=== PATIENT | male | born 1950 | race Caucasian/White ===

== ENCOUNTER 2016-12-15 01:36 | Inpatient (IN) | payer MEDICARE, OTHER ==
[~2016-12-15] VITALS: Ht 175.3 cm; Wt 77.2 kg
[2016-12-15] VITALS (17 sets, daily range): BP systolic 85–101; BP diastolic 50–77; PULSE 93–105; RESP 18–28; TEMP 97.7–99.3; O2SAT 93–100
--- NOTE | 2016-12-15 01:48 | PD ---
HPI Chief Complaint: mechanical fall Time Seen by Provider: 01:42 Travel History International Travel<30 days: No Contact w/Intl Traveler<30days: No Traveled to known affect area: No History of Present Illness HPI The patient is a 66 year old male who presents to the [facility] emergency department with a history of reportedly getting up to go the bathroom and having a mechanical fall prior to arrival. The patient reports that he has had some generalized weakness this evening. The patient denies any injury related to the fall. He denies hitting his head or losing consciousness. He denies having any neck pain or extremity pain. Ambulance services were called to assist him with getting up. The patient's blood pressure was noted to be on the lower side when they sat him up, thus the patient was brought in for evaluation and treatment. They reported that his blood pressure was sitting up was 90/60. IV access was not obtained in this patient prior to arrival. The patient arrives awake and alert. The patient reports that he has stage IV pancreatic cancer. He reports that it was diagnosed in April 2016. He reports that he is followed by an oncologist both in [place] and [facility]. He reports that he last received chemotherapy on Tuesday. He reports that he last had paracentesis done 3 weeks ago. He reports that his next paracentesis is scheduled for this . The patient reports that he was on high blood pressure medication previously, however this was discontinued at assist blood pressure has been lower recently. He reports that his blood pressure has been ranging between 110-95 systolic. The patient reports that his recent history has been complicated by constipation. He reports that he did take a laxative around 5 PM yesterday and since then has had numerous episodes of diarrhea. He reports that the stool is yellow in color. The patient denies being on any antibiotic currently. He does have a bandage in place on the right lower extremity. He reports that he has bruising from that leg related to swelling that has intermittently been occurring over the last several weeks. He reports that he was diagnosed with a DVT in that leg. The patient denies any recent fevers, cough, congestion, neck pain, chest pain, worsening shortness of breath , abdominal pain, vomiting, urinary symptoms, or other neurologic symptoms. [facility] Past Medical History Narrative Medical The patient's past medical history is significant for Pancreatic Cancer diagnosed in April 2016. Last paracentesis 3 weeks ago. Past Surgical History Narrative Surgical The patient's past surgical history is significant for Tonsillectomy. Social History Alcohol Use: No (quit in February 2016) Tobacco Use: No (quit in April 2016) Substance Use: No Allergies-Medications (Allergen,Severity, Reaction): Coded Allergies: No Known Allergies (Unverified , 12/15/16) Reported Meds & Prescriptions Reported Meds & Active Scripts Active Active Prescriptions or Reported Medications Unobtainable Review of Systems Except as stated in HPI: all other systems reviewed are Neg General / Constitutional: No: Fever Eyes: No: Visual changes HENT: No: Headaches, Rhinorrhea, Congestion Cardiovascular: Positive: Dyspnea on exertion, No: Chest Pain or Discomfort Respiratory: No: Cough, Shortness of Breath Gastrointestinal: Positive: Diarrhea, Constipation, Changes in Bowel Habits, No: Nausea, Vomiting, Abdominal Pain, Loss of Appetite Genitourinary: No: Dysuria Musculoskeletal: No: Pain Skin: No Rash Neurologic: Positive: Weakness (generalized weakness), No: Focal Abnormalities , Change in Mentation, Slurred Speech, Paresthesia, Sensory Disturbance Psychiatric: No: Depression Endocrine: No: Polydipsia Hematologic/Lymphatic: No: Easy Bruising Physical Exam Narrative General: The patient is a well-developed, thin appearing male with abdominal distention, in no acute distress. Head and Neck exam: Head is normocephalic atraumatic. Eyes: EOMI, pupils are equal round and reactive to light. The patient has slight scleral icterus. Nose: Midline septum with pink mucous membranes Mouth: Dentition unremarkable. Moist mucus membranes. Posterior oropharynx is not erythematous. No tonsillar hypertrophy. Uvula midline. Airway patent. Neck: No palpable lymphadenopathy. No nuchal rigidity. No thyromegaly. Cardiovascular: Sinus tachycardia in the low 100s without murmurs, gallops, or rubs. No pulse deficit to the extremities on simultaneous auscultation and palpation of his radial artery. Lungs: Clear to auscultation bilaterally. No wheezes, rhonchi, or rales. Abdomen: Soft, with distention noted and a positive fluid wave without tenderness to palpation in all 4 quadrants of the abdomen. No guarding, rebound, or rigidity. Normal bowel sounds are audible. Extremities: No clubbing or cyanosis. The patient has 1+ pitting edema bilateral lower extremities, slightly worse in the right leg compared to the left. The patient has a bandage in place on the right leg related to reported weeping from his skin. Back: No spinous process tenderness to palpation. No costovertebral angle tenderness to palpation. Neurologic Exam: Cranial nerves 2-12 were intact on exam. Strength is 5/5 in all 4 extremities. No sensory deficits noted. Skin Exam: No rash noted. Intact skin that is warm and dry. The patient has slightly jaundice. The patient has poor skin turgor. Data Data Last Documented VS Vital Signs Date Time Temp Pulse Resp B/P Pulse Ox O2 Delivery O2 Flow Rate FiO2 12/15/16 01:40 28 93 Nasal Cannula 2 12/15/16 01:40 99.3 101 95/50 Orders Electrocardiogram (12/15/16 01:42) Complete Blood Count With Diff (12/15/16 01:42) Comprehensive Metabolic Panel (12/15/16 01:42) B-Type Natriuretic Peptide (12/15/16 01:42) Prothrombin Time / Inr (Pt) (12/15/16 01:42) Act Partial Throm Time (Ptt) (12/15/16 01:42) Urinalysis - C+S If Indicated (12/15/16 01:42) Magnesium (Mg) (12/15/16 01:42) Chest, Single Ap (12/15/16 01:42) Iv Access Insert/Monitor (12/15/16 01:42) Ecg Monitoring (12/15/16 01:42) Oximetry (12/15/16 01:42) Sodium Chlorid 0.9% 500 Ml Inj (Ns 500 M (12/15/16 02:00) Sodium Chlor 0.9% 1000 Ml Inj (Ns 1000 M (12/15/16 03:30) Calcium Gluconate Inj (Calcium Gluconate (12/15/16 03:30) Albuterol Neb (Albuterol Neb) (12/15/16 03:30) Insulin Human Regular Inj (Novolin R Inj (12/15/16 03:30) Dextrose 50% In Nolan (Syr) Inj (D50w (Syr (12/15/16 03:30) Sodium Polysty Sulfate Liq (Kayexalate L (12/15/16 03:30) Admit To Inpatient (12/15/16 ) Vital Signs (Adult) Q4H (12/15/16 03:50) Activity Oob With Assistance (12/15/16 03:50) Voice Intercept Technician / Telemetry .CONTINUOUS (12/15/16 03:50) Intake + Output TIMO.QSHIFT (12/15/16 03:50) Diet Heart Healthy (12/15/16 Breakfast) Sodium Chloride 0.9% Flush (Ns Flush) (12/15/16 04:00) Sodium Chloride 0.9% Flush (Ns Flush) (12/15/16 09:00) Basic Metabolic Panel (Bmp) (12/16/16 06:00) Complete Blood Count With Diff (12/16/16 06:00) Pt Request For Service (12/15/16 03:50) Case Management Consult (12/15/16 03:50) Heparin Inj (Heparin Inj) (12/15/16 04:00) Naloxone Inj (Narcan Inj) (12/15/16 04:00) Inpatient Certification (12/15/16 ) Admit Order (Ed Use Only) (12/15/16 03:50) Labs Laboratory Tests Test 12/15/16 12/15/16 02:00 02:20 Sodium Level 132 MEQ/L Potassium Level 6.3 MEQ/L Chloride Level 104 MEQ/L Carbon Dioxide Level 13.4 MEQ/L Anion Gap 15 MEQ/L Blood Urea Nitrogen 50 MG/DL Creatinine 2.38 MG/DL Estimat Glomerular Filtration 27 ML/MIN Rate Random Glucose 136 MG/DL Calcium Level 8.3 MG/DL Magnesium Level 2.9 MG/DL Total Bilirubin 1.8 MG/DL Aspartate Amino Transf 35 U/L (AST/SGOT) Alanine Aminotransferase 17 U/L (ALT/SGPT) Alkaline Phosphatase 188 U/L B-Type Natriuretic Peptide 161 PG/ML Total Protein 6.3 GM/DL Albumin 2.2 GM/DL White Blood Count 4.6 TH/MM3 Red Blood Count 2.85 MIL/MM3 Hemoglobin 10.6 GM/DL Hematocrit 31.6 % Mean Corpuscular Volume 110.9 FL Mean Corpuscular Hemoglobin 37.0 PG Mean Corpuscular Hemoglobin 33.4 % Concent Red Cell Distribution Width 26.5 % Platelet Count 103 TH/MM3 Mean Platelet Volume 11.7 FL Neutrophils (%) (Auto) 88.8 % Lymphocytes (%) (Auto) 9.6 % Monocytes (%) (Auto) 1.2 % Eosinophils (%) (Auto) 0.1 % Basophils (%) (Auto) 0.3 % Neutrophils # (Auto) 4.1 TH/MM3 Lymphocytes # (Auto) 0.4 TH/MM3 Monocytes # (Auto) 0.1 TH/MM3 Eosinophils # (Auto) 0.0 TH/MM3 Basophils # (Auto) 0.0 TH/MM3 CBC Comment AUTO DIFF Differential Comment AUTO DIFF CONFIRMED Platelet Estimate LOW Platelet Morphology Comment NORMAL Ovalocytes 1+ Sonu Cells 1+ Acanthocytes OCC Prothrombin Time 20.6 SEC Prothromb Time International 1.8 RATIO Ratio Activated Partial 33.8 SEC Thromboplast Time MDM Medical Decision Making Medical Screen Exam Complete: Yes Emergency Medical Condition: Yes Medical Record Reviewed: Yes Interpretation(s) Last Impressions Chest X-Ray 12/15/16 0142 Signed Impressions: Service Date/Time: Thursday, December 15, 2016 02:10 - CONCLUSION: No acute disease. Gurmeet Elias MD Differential Diagnosis Dehydration, versus electrolyte abnormality Narrative Course During the course of the patients emergency department visit, the patients history, examination, and differential diagnosis were reviewed with the patient. The patient had IV access obtained and blood work sent for analysis. The patient was placed on a playground monitor with oximetry and blood pressure monitoring. An EKG was done on arrival. The patient's EKG shows a sinus tachycardia, rate of 101, no acute ST segment elevation is noted. The patient was provided normal saline a 500 mL IV fluid bolus times one. The patients laboratory studies were reviewed and remarkable for white count 4.6, hemoglobin 10.6, platelets 103, 88.8 neutrophils., CMP is remarkable for sodium of 132, potassium 6.3, CO2 13.4, BUN 50, creatinine 2.38, glucose 136, magnesium 2.9, total bilirubin 1.8, alkaline phosphatase 188, albumin 2.2, BUN is 161. There are no prior labs done at this facility for comparison. The patient was treated for hyperkalemia with Kayexalate, an amp of D50, regular insulin 10 units IV, calcium gluconate 1 g IV, and albuterol nebulizer treatment 1. Radiology studies were reviewed and remarkable for a chest x-ray that shows no acute abnormality. The patient's hyperkalemia could be partly to blame for the patient's generalized weakness. The patient will be admitted to the hospital for continued evaluation and treatment. The patients results were discussed with the patient, including the plan of care. I explained that further testing and/ or monitoring is indicated based on the patients history, examination, and/ or laboratory findings. Therefore, I recommended admission for additional evaluation. The patient expressed understanding and was agreeable with this plan. The patient was admitted to the hospital in guarded condition and [facility] Physician Communication Physician Communication The patient's case was discussed with Dr. Heath who did agree to admit the patient for further evaluation and treatment at this time. Diagnosis Primary Impression: Accident due to mechanical fall without injury Additional Impressions: Dehydration Hyperkalemia Renal insufficiency Admitting Information Admitting Physician Requests: Admit Scripts Unable to Obtain Active Prescriptions or Reported Meds Lily Santoyo MD Dec 15, 2016 01:48
[2016-12-15] MEDS ORDERED: SODIUM CHLORID 0.9% 500 ML INJ 500 ML IV ONE ×3 (02:00→06:15)
[2016-12-15 02:35] LABS: AUTOMATED NEUTROPHIL # 4.1 TH/MM3 (1.8-7.7); BASOPHIL % 0.3 % (0.0-2.0); EOSINOPHIL % 0.1 % (0.0-4.0); HEMATOCRIT 31.6 % (39.0-51.0); LYMPH % 9.6 % (9.0-44.0); LYMPHOCYTE # 0.4 TH/MM3 (1.0-4.8); MEAN CELL VOLUME 110.9 FL (80.0-100.0); MEAN CORPUSCULAR HGB CONC 33.4 % (32.0-36.0); MONO % 1.2 % (0.0-8.0); NEUT % 88.8 % (16.0-70.0); PLATELET COUNT 103 TH/MM3 (150-450); RED BLOOD COUNT 2.85 MIL/MM3 (4.50-5.90); RED CELL DISTRIBUTION WIDTH 26.5 % (11.6-17.2); WHITE BLOOD COUNT 4.6 TH/MM3 (4.0-11.0)
[2016-12-15 02:37] LABS: HEMO FLAGS AUTO DIFF
--- NOTE | 2016-12-15 02:37 | RADRPT ---
EXAM DATE/TIME: 12/15/2016 02:10 [place] COMPARISON: No previous studies available for comparison. INDICATIONS : Short of breath MEDICAL HISTORY : Unknown SURGICAL HISTORY : Unknown ENCOUNTER: Initial ACUITY: 1 day PAIN SCORE: Non-responsive. LOCATION: Bilateral chest FINDINGS: A single view of the chest demonstrates the lungs to be symmetrically aerated without evidence of mas s, infiltrate or effusion. The cardiomediastinal contours are unremarkable. Osseous structures are intact. CONCLUSION: No acute disease. Gurmeet Elias MD on December 15, 2016 at 2:36 Board Certified Radiologist. This report was verified electronically.
[2016-12-15 02:42] LABS: ALKALINE PHOSPHATASE 188 U/L (45-117); TOTAL BILIRUBIN ADULT 1.8 MG/DL (0.2-1.0)
[2016-12-15 02:42] LABS: APTT (PATIENT) 33.8 SEC (24.3-30.1); INTERNATIONAL NORMALIZED RATIO 1.8 RATIO; PROTHROMBIN TIME - PATIENT 20.6 SEC (9.8-11.6)
[2016-12-15 02:47] LABS: ALT (GPT) 17 U/L (12-78); ANION GAP 15 MEQ/L (5-15); AST (GOT) 35 U/L (15-37); BICARBONATE 13.4 MEQ/L (21.0-32.0); BLOOD UREA NITROGEN 50 MG/DL (7-18); CHLORIDE 104 MEQ/L (98-107); GLOMERULAR FILTRATION RATE 27 ML/MIN (>89); MAGNESIUM 2.9 MG/DL (1.5-2.5); POTASSIUM 6.3 MEQ/L (3.5-5.1); SODIUM (NA) 132 MEQ/L (136-145)
[2016-12-15 03:06] LABS: ACANTHOCYTES OCC (NORMAL); BURR CELLS 1+ (NORMAL); OVALOCYTES 1+ (NORMAL); PLATELET ESTIMATE SMEAR LOW (NORMAL); PLATELET MORPHOLOGY NORMAL (NORMAL); SCAN/DIFF AUTO DIFF CONFIRMED
[2016-12-15] MEDS ORDERED: SODIUM CHLOR 0.9% 1000 ML INJ 1,000 ML IV ONE (03:30)
[2016-12-15] MEDS ORDERED: SODIUM POLYSTYRENE SULFONATE SUSP 15 GM/60 ML CUP PO ONE (03:30)
[2016-12-15] MEDS ORDERED: CALCIUM GLUCONATE INJ 1 GM in DEXTROSE 5% IN WATER 100ML INJ 100 ML IV ONE ×2 (03:30)
[2016-12-15] MEDS ORDERED: INSULIN HUMAN REGULAR 1,000 UNITS/10 ML VIAL IV PUSH ONE (03:30)
[2016-12-15] MEDS ORDERED: RESP: ALBUTEROL 2.5 MG/3 ML NEB (SCH) NEB ONE (03:30)
[2016-12-15] MEDS ORDERED: DEXTROSE 50% IN WATER 50 ML SYRINGE IV ONE (03:30)
[2016-12-15] MEDS ORDERED: SODIUM CHLORIDE 0.9% FLUSH 5 ML FLUSH FLUSH PRN (04:00)
[2016-12-15] MEDS ORDERED: NALOXONE HCL 0.4 MG/ML AMP IV PRN (04:00)
[2016-12-15] MEDS: HEPARIN SODIUM - SQ 10,000 UNITS/ML VIAL SQ SCH ×3 (04:00→20:13)
[2016-12-15] MEDS ORDERED: SODIUM BICARBONATE 8.4% INJ 50 MEQ in DEXTROSE 5% IN WATE 1000ML INJ 1,000 ML IV SCH ×2 (04:00)
[2016-12-15] MEDS ORDERED: SODIUM BICARBONATE 8.4% INJ 50 MEQ/50 ML SYR IV PUSH ONE (05:00)
--- NOTE | 2016-12-15 05:11 | HHI.HP ---
HPI Service [facility] Primary Care Physician No Primary Care Physician Admission Diagnosis Generalized weakness, hyperkalemia, dehydration Diagnoses: (1) Stage IV adenocarcinoma of pancreas (2) Anemia (3) Accident due to mechanical fall without injury (4) Dehydration (5) Acute kidney failure (6) Hyperkalemia (7) Hyponatremia Chief Complaint: Fall while attempting to go to bathroom Travel History International Travel<30 Days: No Contact w/Intl Traveler <30 Da: No Traveled to Known Affected Are: No History of Present Illness Mr. Hooker is a 66-year-old male with a past medical history of stage IV pancreatic cancer being treated by chemotherapy at [facility] under the care of Dr. Art, hypertension not requiring medication management at this time , DVT right lower extremity, PE, dependent edema, and gastroesophageal reflux disease who presented to the emergency room today complaining of a fall while going to the bathroom this morning. The patient is seen in the emergency room. He states that he was placed on fentanyl patches about a week ago and has since developed constipation that is severe. He was given a cathartic that may be lactulose but he is uncertain of the name of the medication and had 4 BMs. He states that he was attempting to stand up from the bed to go the bathroom when he fell. He denies syncope, head injury, chest pain or shortness of breath prior to fall. He states he is not sure if he has a history of liver problems like cirrhosis. He denies frequent falls but admits to falling 3 times in the past 9 months. He denies any history of CVA, seizures, or thyroid dysfunction. He states that he has a right lower extremity DVT and pulmonary embolism treated with IVC filter. He denies heart problems or respiratory problems. . Review of Systems Constitutional: COMPLAINS OF: Dizziness (chronic, with standing), DENIES: Fever, Chills Ears, nose, mouth, throat: DENIES: Oral lesions (no bleeding from mouth) Respiratory: DENIES: Cough, Shortness of breath Cardiovascular: DENIES: Chest pain, Syncope Gastrointestinal: DENIES: Black stools, Bloody stools Genitourinary: DENIES: Hematuria, Dysuria Neurologic: DENIES: Seizures, Poor Balance Other 10 point systems are reviewed and are otherwise negative . Past Family Social History Past Medical History Stage IV Pancreatic CA Hypertension previous to CA treatment DVT right lower extremity Dependent edema GERD . Past Surgical History Biopsy of pancreas being treated with chemotherapy; last treatment was Tuesday at [facility] - no radiation or surgery IVC Filter Reported Medications Water pill Fentanyl patch acid reflux medication Allergies: Coded Allergies: No Known Allergies (Unverified , 12/15/16) Active Ordered Medications Current Medications Sodium Chloride 500 ml @ 500 mls/hr BOLUS ONCE IV Last administered on 02:10; Start 12/15/16 at 02:00; Stop 12/15/16 at 02:59; Status DC Sodium Chloride 1,000 ml @ 1,000 mls/hr Q1H ONCE IV ; Start 12/15/16 at 03:30; Stop 12/15/16 at 03:56; Status DC Calcium Gluconate/ Dextrose (Calcium Gluconate Inj/D5W 100 ml Inj) 110 ml @ 110 mls/hr ONCE ONCE IV Last administered on 12/15/16 04:12; Start 12/15/16 at 03:30; Stop 12/15/16 at 04:29; Status DC Albuterol Sulfate (Albuterol Neb) 2.5 mg ONCE ONCE NEB Last administered on 03:50; Start 12/15/16 at 03:30; Stop 12/15/16 at 03:33; Status DC Insulin Human Regular (NovoLIN R INJ) 10 units ONCE ONCE IV PUSH Last administered on 12/15/16 04:13; Start 12/15/16 at 03:30; Stop 12/15/16 at 03:33 ; Status DC Dextrose (D50w (Syr) Inj) 50 ml ONCE ONCE IV Last administered on 12/15/16 04 :12; Start 12/15/16 at 03:30; Stop 12/15/16 at 03:33; Status DC Sodium Polystyrene Sulfonate (Kayexalate Liq) 15 gm ONCE ONCE PO Last administered on 12/15/16 04:13; Start 12/15/16 at 03:30; Stop 12/15/16 at 03:33 ; Status DC IV Flush (NS Flush) 2 ml UNSCH PRN FLUSH FLUSH AFTER USING IV ACCESS; Start at 04:00 IV Flush (NS Flush) 2 ml BID FLUSH ; Start 12/15/16 at 09:00 Heparin Sodium (Porcine) (Heparin Inj) 5,000 units Q8H SQ ; Start 12/15/16 at 04 :00 Naloxone HCl 0.4 mg 0.4 mg UNSCH PRN IV SEE LABEL COMMENTS; Start 12/15/16 at 04:00 Sodium Bicarbonate/ Dextrose (Sodium Bicarbonate 8.4% Inj/D5W 1000 ml Inj) 1, 050 ml @ 42 mls/hr Q24H IV ; Start 12/15/16 at 04:00 . Family History Mother with valvular heart disease . Social History Lives at home with his Tobacco: Quit smoking February 2016 Alcohol: Quit drinking April 2016 . Physical Exam Vital Signs Vital Signs Date Time Temp Pulse Resp B/P Pulse Ox O2 Delivery O2 Flow Rate FiO2 12/15/16 01:40 28 93 Nasal Cannula 2 12/15/16 01:40 99.3 101 28 95/50 93 12/15/16 01:40 28 93 Room Air Physical Exam GENERAL: This is a 66-year-old male who appears older than stated age and looks chronically ill, in no apparent distress. SKIN: Color is ashen. Cool and dry. HEAD: Atraumatic. Normocephalic. EYES: No scleral icterus. No injection or drainage. ENT: Nose without bleeding, purulent drainage. NECK: Trachea midline. No JVD or lymphadenopathy. CARDIOVASCULAR: Regular rate and rhythm without murmurs, gallops, or rubs. 3+ peripheral lower extremity edema from thighs down RESPIRATORY: Clear to auscultation. Breath sounds equal bilaterally. No wheezes , rales, or rhonchi. GASTROINTESTINAL: Abdomen soft, non-tender, ascites noted. No guarding. MUSCULOSKELETAL: Extremities without clubbing, cyanosis. No calf tenderness. NEUROLOGICAL: Awake and alert. Motor and sensory grossly within normal limits. Normal speech. . Laboratory Laboratory Tests Test 12/15/16 12/15/16 02:00 02:20 Sodium Level 132 Potassium Level 6.3 Chloride Level 104 Carbon Dioxide Level 13.4 Anion Gap 15 Blood Urea Nitrogen 50 Creatinine 2.38 Estimat Glomerular Filtration 27 Rate Random Glucose 136 Calcium Level 8.3 Magnesium Level 2.9 Total Bilirubin 1.8 Aspartate Amino Transf 35 (AST/SGOT) Alanine Aminotransferase 17 (ALT/SGPT) Alkaline Phosphatase 188 B-Type Natriuretic Peptide 161 Total Protein 6.3 Albumin 2.2 White Blood Count 4.6 Red Blood Count 2.85 Hemoglobin 10.6 Hematocrit 31.6 Mean Corpuscular Volume 110.9 Mean Corpuscular Hemoglobin 37.0 Mean Corpuscular Hemoglobin 33.4 Concent Red Cell Distribution Width 26.5 Platelet Count 103 Mean Platelet Volume 11.7 Neutrophils (%) (Auto) 88.8 Lymphocytes (%) (Auto) 9.6 Monocytes (%) (Auto) 1.2 Eosinophils (%) (Auto) 0.1 Basophils (%) (Auto) 0.3 Neutrophils # (Auto) 4.1 Lymphocytes # (Auto) 0.4 Monocytes # (Auto) 0.1 Eosinophils # (Auto) 0.0 Basophils # (Auto) 0.0 CBC Comment AUTO DIFF Differential Comment AUTO DIFF CONFIRMED Platelet Estimate LOW Platelet Morphology Comment NORMAL Ovalocytes 1+ Spindale Cells 1+ Acanthocytes OCC Prothrombin Time 20.6 Prothromb Time International 1.8 Ratio Activated Partial 33.8 Thromboplast Time Result Diagram: 12/15/16 0220 12/15/16 0200 Imaging Last Impressions Chest X-Ray 12/15/16 0142 Signed Impressions: Service Date/Time: Thursday, December 15, 2016 02:10 - CONCLUSION: No acute disease. Gurmeet Elias MD . Assessment and Plan Problem List: (1) Dehydration ICD Code: E86.0 Status: Acute (2) Accident due to mechanical fall without injury ICD Code: W19.XXXA Status: Acute (3) Anemia ICD Code: D64.9 Status: Acute (4) Stage IV adenocarcinoma of pancreas ICD Code: C25.9 Status: Chronic (5) Acute kidney failure ICD Code: N17.9 Status: Acute (6) Hyperkalemia ICD Code: E87.5 Status: Acute (7) Hyponatremia ICD Code: E87.1 Status: Acute Assessment and Plan Stage IV pancreatic CA being treated with chemotherapy - will need to get records from the patient's when she visits today - Oncologist is Dr. Art at [facility] - consult palliative care to review goals of treatment - will need to have present as patient's capacity may be impaired - he is unable to recall medical conditions and medication names very well; will need HCS and living will completed if he is willing to do so Anemia, likely chronic related to cancer/chemotherapy - Hemoglobin 10.6 and hematocrit 31.6 on admission - Recheck CBC and follow trends - Transfuse as necessary Hyperkalemia - initial K+ 6.3, treated with Kayexalate, dextrose, insulin, albuterol, and calcium - recheck BMP q4h and treat as indicated; nursing to call results to MD Acute Kidney Failure likely secondary to Dehydration - no baseline for comparison - BUN 50, creatinine 2.38, estimated GFR 27 on admission - IV fluid bolus with normal saline 500 cc - Recheck renal indices with BMP which is being performed every 4 hours - Avoid nephrotoxins Hyponatremia - Initial sodium 132 - Normal saline bolus 500 cc - Recheck sodium level and follow trends; replace as indicated Falls - consult physical therapy DVT prophylaxis - Heparin 5000 units subq q8h Written by Sumaya Garcia, acting as scribe for Dr. Heath on 12/15/16 at 04:57. All or portions of this note were transcribed by scribe [Sumaya Garcia]. I, Dr. Darlin Heath personally performed the history, physical exam, and medical decision making; and confirmed the accuracy of the information in the transcribed note. Authenticated by Dr. Darlin Heath on 12/15/16 [id number] All or portions of this note were transcribed by zenaida [Sumaya Garcia]. I, Dr. Darlin Heath personally performed the history, physical exam, and medical decision making; and confirmed the accuracy of the information in the transcribed note. Authenticated by Dr. Darlin Heath on 12/15/16 at 0457 Code Status patie, All or portions of this note were transcribed by scribjennifer []. I, Dr. Darlin Heath personally performed the history, physical exam, and medical decision making; and confirmed the accuracy of the information in the transcribed note. Authenticated by Dr. Darlin Heath on 01/26/17 at 07:18. Discussed Condition With Patient, RN, and ED physician .patient, ER MD Physician Certification 2 Midnight Certification Type: Admission for Inpatient Services Order for Inpatient Services The services are ordered in accordance with Medicare regulations or non- Medicare payer requirements, as applicable. In the case of services not specified as inpatient-only, they are appropriately provided as inpatient services in accordance with the 2-midnight benchmark. Estimated LOS (days): 3 days is the estimated time the patient will need to remain in the hospital, assuming treatment plan goals are met and no additional complications. Post-Hospital Plan: Not yet determined Problem Qualifiers (1) Accident due to mechanical fall without injury: Qualified Code: W19.XXXA - Accident due to mechanical fall without injury, initial encounter Sumaya Garcia Dec 15, 2016 05:11 Darlin Heath MD Jan 26, 2017 07:20
[2016-12-15 05:41] LABS: BICARBONATE 16.9 MEQ/L (21.0-32.0); POTASSIUM 4.7 MEQ/L (3.5-5.1)
[2016-12-15 08:17] LABS: BICARBONATE 18.6 MEQ/L (21.0-32.0); POTASSIUM 5.1 MEQ/L (3.5-5.1)
--- NOTE | 2016-12-15 08:45 | EKG ---
Date Performed: 12/15/2016 Time Performed: 01:51:03 PTAGE: 66 years EKG: BASELINE ARTIFACT PRESENT. Unclear underlying rhythm POSSIBLE ANTERIOR MYOCARDIAL INFARCTIO N INFERIOR MYOCARDIAL INFARCTION ABNORMAL ECG INTERPRETATION BASED ON A DEFAULT AGE OF 39 YEARS NO PREVIOUS TRACING DOCTOR: Jhonathan Gibbs Interpretating Date/Time 12/15/2016 08:43:32
[2016-12-15] MEDS: SODIUM CHLORIDE 0.9% FLUSH 5 ML FLUSH FLUSH SCH ×2 (09:00→20:13)
--- NOTE | 2016-12-15 10:44 | PD.CONS ---
[facility] Service Nephrology Consult Requested By Reason for Consult Acute kidney injury and hyperkalemia Primary Care Physician No Primary Care Physician History of Present Illness Mr. Hooker has history of stage IV pancreatic cancer for which he apparently is on chemotherapy. His oncologist is Dr. Art. The patient came to the hospital after suffering a fall while trying to get up from his bed to go to the bathroom. Patient's creatinine on admission was 2.38, potassium 6.3, and bicarbonate 13.4. Creatinine today is 2.12, potassium has improved. reports that his renal function had been normal. Diagnosis of pancreatic cancer was made in April of 2016. It was inoperable at the time of diagnosis. He has been on chemotherapy through [facility], here he follows with Dr. Art. He has had malignant ascites, and has undergone therapeutic paracentesis once in 2 weeks. Review of Systems Constitutional: COMPLAINS OF: Fatigue, Weight loss (60 lb weight loss in 4 months. ), Change in appetite Cardiovascular: DENIES: Chest pain, Palpitations Gastrointestinal: COMPLAINS OF: Constipation, DENIES: Diarrhea, Nausea, Vomiting Past Family Social History Allergies: Coded Allergies: No Known Allergies (Unverified , 12/15/16) Past Medical History Stage IV Pancreatic CA Hypertension previous to CA treatment DVT right lower extremity Dependent edema GERD Past Surgical History .Biopsy of pancreas being treated with chemotherapy; last treatment was Tuesday at [facility] - no radiation or surgery IVC Filter Reported Medications spironolactone 25 mg PO daily. Fentanyl patch: removed. Prilosec 20 mg PO BID Remeron 30 mg PO QHS Trazodone 50 mg PO QHS Zofran prn Oxycodone 5 mg PRN Active Ordered Medications Current Medications Medications (Trade) Dose Ordered Sig/Kya Route Start Time Stop Time Status Last Admin (NS Flush) 2 ml UNSCH PRN FLUSH 12/15/16 04:00 (NS Flush) 2 ml BID FLUSH 12/15/16 09:00 (Heparin Inj) 5,000 units Q8H SQ 12/15/16 04:00 (Narcan Inj) 0.4 mg UNSCH PRN IV 12/15/16 04:00 Family History non contributory Social History Lives at home with his . He is from [place], lives here in [place]. Tobacco: Quit smoking February 2016 Alcohol: Quit drinking April 2016 Physical Exam Vital Signs Vital Signs Date Time Temp Pulse Resp B/P Pulse Ox O2 Delivery O2 Flow Rate FiO2 12/15/16 08:52 93 20 89/59 99 12/15/16 01:40 28 93 Nasal Cannula 2 12/15/16 01:40 99.3 101 28 95/50 93 12/15/16 01:40 28 93 Room Air Physical Exam GENERAL: malnourished, chronically ill appearing. SKIN: Warm and dry. HEAD: Normocephalic. EYES: No scleral icterus. No injection or drainage. NECK: Supple, trachea midline. No JVD or lymphadenopathy. CARDIOVASCULAR: Regular rate and rhythm without murmurs, gallops, or rubs. RESPIRATORY: Breath sounds equal bilaterally. No accessory muscle use. GASTROINTESTINAL: Abdomen is distended, has ascites. MUSCULOSKELETAL: bilateral lower extremity edema. BACK: Nontender without obvious deformity. No CVA tenderness. Laboratory Laboratory Tests Test 12/15/16 12/15/16 12/15/16 12/15/16 02:00 02:20 04:55 07:48 Sodium Level 132 135 136 Potassium Level 6.3 4.7 5.1 Chloride Level 104 103 105 Carbon Dioxide Level 13.4 16.9 18.6 Anion Gap 15 15 12 Blood Urea Nitrogen 50 48 48 Creatinine 2.38 2.26 2.12 Estimat Glomerular Filtration 27 29 31 Rate Random Glucose 136 182 135 Calcium Level 8.3 8.2 8.2 Magnesium Level 2.9 Total Bilirubin 1.8 Aspartate Amino Transf 35 (AST/SGOT) Alanine Aminotransferase 17 (ALT/SGPT) Alkaline Phosphatase 188 B-Type Natriuretic Peptide 161 Total Protein 6.3 Albumin 2.2 White Blood Count 4.6 Red Blood Count 2.85 Hemoglobin 10.6 Hematocrit 31.6 Mean Corpuscular Volume 110.9 Mean Corpuscular Hemoglobin 37.0 Mean Corpuscular Hemoglobin 33.4 Concent Red Cell Distribution Width 26.5 Platelet Count 103 Mean Platelet Volume 11.7 Neutrophils (%) (Auto) 88.8 Lymphocytes (%) (Auto) 9.6 Monocytes (%) (Auto) 1.2 Eosinophils (%) (Auto) 0.1 Basophils (%) (Auto) 0.3 Neutrophils # (Auto) 4.1 Lymphocytes # (Auto) 0.4 Monocytes # (Auto) 0.1 Eosinophils # (Auto) 0.0 Basophils # (Auto) 0.0 CBC Comment AUTO DIFF Differential Comment AUTO DIFF CONFIRMED Platelet Estimate LOW Platelet Morphology Comment NORMAL Ovalocytes 1+ Vaiden Cells 1+ Acanthocytes OCC Prothrombin Time 20.6 Prothromb Time International 1.8 Ratio Activated Partial 33.8 Thromboplast Time Result Diagram: 12/15/16 0220 12/15/16 0748 Assessment and Plan Problem List: (1) Acute kidney injury Plan: baseline renal function apparently normal. May have developed WILIAN due to intravascular volume depletion, pre-renal azotemia. Continue IVF. Add bicarbonate to IVF. Avoid nephrotoxic agents. Avoid Fleets enema. Rule out obstruction, will obtain abdominal US. Monitor urine output and renal function. (2) Hyperkalemia Plan: improved. Likely due to Spironolactone and renal insufficiency. Avoid Kayexalate if possible. Add bicarbonate to IVF. Monitor. (3) Hyponatremia Plan: Improved, likely due to non osmotic release of ADH. (4) Stage IV adenocarcinoma of pancreas Plan: has been on chemotherapy. (5) Malignant ascites Plan: patient was scheduled for paracentesis tomorrow at [facility]. Consider IR consult. I will order abdominal US. Assessment and Plan Thanks for the consult. I will follow. His prognosis is poor. Mp Navarro MD Dec 15, 2016 10:44
--- NOTE | 2016-12-15 10:57 | PD.CONS ---
Consult Service Palliative Care Consult Requested By Dr Heath . Primary Care Physician No Primary Care Physician Reason for Consultation a. To assist with evaluation and management of symptoms including: weakness b. To assist medical decision maker(s) with: better understanding of current medical conditions; weighing benefits/burdens of medical treatment options; making medical treatment decisions. HPI History of Present Illness This 66 yr old into to the ED on 12/15/16 around 1 AM. he apparently sustained a mechanical fall when getting up to use the restroom. He reported some generalized weakness that evening denying any injury related to the fall. Denies loss of consciousness, neck or extremity pain. EMS was activated to assist to get him up. Patient BP noted to be low 90s systolic patient was brought to the ED for further evaluation and management. At arrival to the ED patient was alert. Reporting known history of stage IV pancreatic cancer. Just diagnosed April 2016. Follows outpatient with oncology here as well as up [id number]. Chemotherapy was received on Tuesday. Last paracentesis done 3 weeks ago. Next paracentesis reported to be scheduled for this . Patient reports history of hypertension requiring medication however had recently been discontinued with lower blood pressures recently. Recent baseline 951 10 systolic. Reports recent constipation--laxative yesterday this was followed by multiple bouts of diarrhea. Patient denied other symptoms of fever, cough, congestion, neck pain, chest pain shortness of breath abdominal pain and vomiting urinary symptoms or any other neurologic symptoms. * ED course: CXR= no acute process. EKG= sinus tachycardia. Initiated on IV fluid bolus. CBC notable for WBC 4.6, platelets 103. CMP notable for hyponatremia 132, potassium 6.3, BUN 50/creatinine 2.38. Total bilirubin 1.8 alkaline phosphatase 188, albumin 2.2. No prior labs available in our medical records for comparison. Received treatment with Kayexalate, D50, insulin, calcium gluconate. The received nebulizers. Hyperkalemia felt to be contributing to generalized weakness. He was admitted for further evaluation and management. * Records from oncology [facility] requested (Dr Art). Palliative care consulted to assist with clarification of goals of treatment. Some concern that patient capacity may be impaired, noted to be poor historian by medical attending. nephrology consult also pending. Patient seen in room as physical therapy is working with him, completing evaluation. He indicates he still feels weak and he "doesn't know if he is ready for this "in terms of trying to get up with PT. PT advised best to maintain his strength and work with therapy sooner rather than later. Exam, consultation completed after PT concluded. Patient has just returned to bed he also got up to use bedside commode. (*Note small amount of liquid school , with some cristiane red present.) He indicates he is feeling tired and weak. He is alert, oriented, appropriate, seems to have reasonable insight and report of his oncology diagnoses and trajectory thus far. He tells me the date and month of original diagnoses, it all started after he was feeling nauseous, upset stomach following a cookout he hosted, he presented to his primary --they initially thought he was having cholecystitis however CT imaging revealed findings of advanced pancreatic cancer. He indicates he has widespread metastasis to multiple organs including lung, liver, stomach, other areas within the abdomen and that surgery was not presented as an option. He was offered palliative chemotherapy, he understands that he is not expected to have long life expectancy with current diagnoses that he will succumb to this however he wished to proceed with chemotherapy to gain one other time he may have by reducing disease burden. He indicates that overall he had been doing "okay "with ongoing therapy he describes mild weakness, fairly significant weight loss of 40-60 pounds since diagnoses in April 2016, but that otherwise overall day-to-day felt okay. Still ambulatory though required frequent rest, and was primarily sedentary during the day. Essentially ROS negative; primarily complains of weakness, new onset diarrhea at home. He indicates having been on a fentanyl patch for fairly recent though now sounding chronic shoulder pain, which resulted in constipation and required multiple laxatives, enemas etc., he indicates this led to diarrhea and that is when his current state of weakness and falls began. (In the past days). Patient just moved to the area in November of this year, just began following with Dr. Rubens garcia this past month. He was to do for next scheduled paracentesis for ascites this , was due for next round of IV chemotherapy on Tuesday of this week. Function/Cognitive Trajectory Still ambulatory though required frequent rest, and was primarily sedentary during the day. Able to shop, complete ADLs however preferred to do so seated and with periods of rest. Cognitively sharp. Review of Systems Constitutional: COMPLAINS OF: Fatigue, Weight loss (4060 pounds since April 2016), Pain (chronic shoulder), DENIES: Fever, Change in appetite Eyes: DENIES: Vision loss Ears, nose, mouth, throat: DENIES: Oral lesions, Throat pain Respiratory: DENIES: Apneas, Cough, Snoring, Sputum production, Shortness of breath Cardiovascular: COMPLAINS OF: Lower Extremity Edema (ongoing past several months), DENIES: Chest pain, Palpitations Gastrointestinal: COMPLAINS OF: Constipation (recent onset with use of fentanyl , required laxatives), Diarrhea (recent onset following use of laxatives), Nausea (intermittent, very infrequent), DENIES: Abdominal pain, Bloody stools, Vomiting, Difficulty Swallowing, Anorexia Genitourinary: DENIES: Urinary incontinence Musculoskeletal: COMPLAINS OF: Joint pain (chronic shoulder pain), DENIES: Muscle aches, Back pain Integumentary: COMPLAINS OF: Nail changes (chronic thickening and brittle nails he relates to chemotherapy) Hematologic/Lymphatics: COMPLAINS OF: Bruising (bruises easily ongoing) Neurologic: DENIES: Headache, Localized weakness, Poor Balance, Change in smell or taste Psychiatric: DENIES: Anxiety, Depression Past Family Social History Coded Allergies: No Known Allergies (Unverified , 12/15/16) Past Medical History Stage IV Pancreatic CA- DX April 2016 Hypertension previous to CA treatment DVT right lower extremity Pulmonary embolism s/p IVC filter Dependent edema GERD Frequent falls . Past Surgical History Biopsy of pancreas being treated with chemotherapy; last treatment was Tuesday at [facility] - no radiation or surgery IVC Filter Reported Medications Ongoing IV, oral chemotherapy (cisplatin?) --last IV treatment Sunday 12/10 Water pill Fentanyl patch acid reflux medication . Current Medications Medications (Trade) Dose Ordered Sig/Kya Route Start Time Stop Time Status Last Admin (NS Flush) 2 ml UNSCH PRN FLUSH 12/15/16 04:00 (NS Flush) 2 ml BID FLUSH 12/15/16 09:00 (Heparin Inj) 5,000 units Q8H SQ 12/15/16 04:00 (Narcan Inj) 0.4 mg UNSCH PRN IV 12/15/16 04:00 Family History Mother with valvular heart disease . Substance Use Tobacco: Former smoker, quit April 2016 Alcohol: Former alcohol use, quit February 2016 Prescription med abuse: Illicits: Psychosocial History to his second , originally from [place]. Moved to [place] just recently in the past month for the warmer climate. Has 5 adult children from a prior marriage. Also raising his 2 young grandchildren with his , ages 6 years, 15 months. 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 . Living Will: Completed, but not made available Health Care Surrogate: Completed, but not made available (patient indicates has completed advance directives designating his Jennifer as legal decision maker. We do not currently have copies of this documentation.) Ethical and Legal Issues Patient currently appears capacitated, clear and able to make his own decisions. patient indicates has completed advance directives designating his Jennifer as legal decision maker. We do not currently have copies of this documentation. In absence of these documents, per [place] statutes his would be legal decision maker. Physical Exam Vital Signs Date Time Temp Pulse Resp B/P Pulse Ox O2 Delivery O2 Flow Rate FiO2 12/15/16 08:52 93 20 89/59 99 12/15/16 01:40 28 93 Nasal Cannula 2 12/15/16 01:40 99.3 101 28 95/50 93 12/15/16 01:40 28 93 Room Air Exam CONSTITUTIONAL/GENERAL: Frail-appearing man, examined in bed, in no apparent distress. TUBES/LINES/DRAINS: Peripheral IV right upper extremity SKIN: No jaundice, rashes, or lesions. Multiple areas of ecchymosis and skin tears to bilateral upper extremities. Several areas of ecchymosis to lower extremities, as well as chronic skin thickening and scaling to bilateral lower extremities. Significant edema to lower extremities from knees down. + Nails thickened, discolored yellow, some appear to be sloughing off, .Skin temperature warm. HEAD: Atraumatic. Normocephalic. EYES: Pupils equal and round and reactive. Extraocular motions intact. No scleral icterus. No injection or drainage. Fundi not examined. ENT: Hearing grossly normal. Nose without bleeding or purulent drainage. Throat without visible erythema, exudates, masses, or lesions. NECK: Trachea midline. Supple, nontender. No palpable thyroid enlargement or nodularity. CARDIOVASCULAR: Regular rate and rhythm , no murmurs. No JVD. Peripheral pulses symmetric. 2+ edema to bilateral lower extremities from the knee down. RESPIRATORY/CHEST: Symmetric, unlabored respirations on room air. Clear to auscultation. Breath sounds equal bilaterally. GASTROINTESTINAL: Abdomen soft, non-tender, +distended. + ascites. No guarding. Bowel sounds present. Patient recently to bedside commode for bowel movement, observe small amount liquid output with cristiane red present. GENITOURINARY: Without palpable bladder distension. Reports to void to bedside. MUSCULOSKELETAL: Extremities without clubbing, cyanosis. No joint tenderness or effusion noted. No mottling or clubbing. NEUROLOGICAL: Awake and alert-oriented 3. Appropriate follows conversation easily. Insight seems reasonable to good. Follows commands. Cognitively sharp. Moves all 4 extremities. PSYCHIATRIC: No obvious anxiety/depression. no apparent hallucinations or other psychotic thought process. Diagnostic Tests Laboratory Laboratory Tests Test 12/15/16 12/15/16 12/15/16 12/15/16 02:00 02:20 04:55 07:48 Sodium Level 132 MEQ/L 135 MEQ/L 136 MEQ/L (136-145) (136-145) (136-145) Potassium Level 6.3 MEQ/L 4.7 MEQ/L 5.1 MEQ/L (3.5-5.1) (3.5-5.1) (3.5-5.1) Chloride Level 104 MEQ/L 103 MEQ/L 105 MEQ/L (98-107) (98-107) (98-107) Carbon Dioxide Level 13.4 MEQ/L 16.9 MEQ/L 18.6 MEQ/L (21.0-32.0) (21.0-32.0) (21.0-32.0) Anion Gap 15 MEQ/L (5-15) 15 MEQ/L (5-15) 12 MEQ/L (5-15) Blood Urea Nitrogen 50 MG/DL (7-18) 48 MG/DL (7-18) 48 MG/DL (7-18) Creatinine 2.38 MG/DL 2.26 MG/DL 2.12 MG/DL (0.60-1.30) (0.60-1.30) (0.60-1.30) Estimat Glomerular Filtration 27 ML/MIN (>89) 29 ML/MIN (>89) 31 ML/MIN (>89) Rate Random Glucose 136 MG/DL 182 MG/DL 135 MG/DL (74-106) (74-106) (74-106) Calcium Level 8.3 MG/DL 8.2 MG/DL 8.2 MG/DL (8.5-10.1) (8.5-10.1) (8.5-10.1) Magnesium Level 2.9 MG/DL (1.5-2.5) Total Bilirubin 1.8 MG/DL (0.2-1.0) Aspartate Amino Transf 35 U/L (15-37) (AST/SGOT) Alanine Aminotransferase 17 U/L (12-78) (ALT/SGPT) Alkaline Phosphatase 188 U/L (45-117) B-Type Natriuretic Peptide 161 PG/ML (0-100) Total Protein 6.3 GM/DL (6.4-8.2) Albumin 2.2 GM/DL (3.4-5.0) White Blood Count 4.6 TH/MM3 (4.0-11.0) Red Blood Count 2.85 MIL/MM3 (4.50-5.90) Hemoglobin 10.6 GM/DL (13.0-17.0) Hematocrit 31.6 % (39.0-51.0) Mean Corpuscular Volume 110.9 FL (80.0-100.0) Mean Corpuscular Hemoglobin 37.0 PG (27.0-34.0) Mean Corpuscular Hemoglobin 33.4 % Concent (32.0-36.0) Red Cell Distribution Width 26.5 % (11.6-17.2) Platelet Count 103 TH/MM3 (150-450) Mean Platelet Volume 11.7 FL (7.0-11.0) Neutrophils (%) (Auto) 88.8 % (16.0-70.0) Lymphocytes (%) (Auto) 9.6 % (9.0-44.0) Monocytes (%) (Auto) 1.2 % (0.0-8.0) Eosinophils (%) (Auto) 0.1 % (0.0-4.0) Basophils (%) (Auto) 0.3 % (0.0-2.0) Neutrophils # (Auto) 4.1 TH/MM3 (1.8-7.7) Lymphocytes # (Auto) 0.4 TH/MM3 (1.0-4.8) Monocytes # (Auto) 0.1 TH/MM3 (0-0.9) Eosinophils # (Auto) 0.0 TH/MM3 (0-0.4) Basophils # (Auto) 0.0 TH/MM3 (0-0.2) CBC Comment AUTO DIFF Differential Comment AUTO DIFF CONFIRMED Platelet Estimate LOW (NORMAL) Platelet Morphology Comment NORMAL (NORMAL) Ovalocytes 1+ (NORMAL) Sonu Cells 1+ (NORMAL) Acanthocytes OCC (NORMAL) Prothrombin Time 20.6 SEC (9.8-11.6) Prothromb Time International 1.8 RATIO Ratio Activated Partial 33.8 SEC Thromboplast Time (24.3-30.1) Result Diagram: 12/15/16 0220 12/15/16 0748 Patient/Family Conference Present at Family Conference: patient Family Conference Time (mins): 40 (minutes) Family Conference Location: Bedside Issues Discussed: Met with patient at length at bedside. Discussion included the following: * Palliative care role, purpose, approach * Additional medical, psychosocial, history * Patients general health, functional status, and cognitive status in the months leading up to the current hospitalization * Patient/family understanding of the current medical problems, prognosis * Legal decision makers- indicates his is designated surrogate though we do not have paperwork documenting this at this time. Per statutes would be legal decision maker. * CODE STATUSpatient endorses he would "want to try"; I did review potential risks/benefits/complications * Patients goals of care * Likely scenarios comparing ongoing aggressive care with a transition to comfort measures only--review of hospice role, philosophy * Questions answered to the best of my ability * Palliative care contact information provided Met with patient at length. See history of present illness/subjective for additional details regarding conversation with patient. Discussion included above topics. He would like for me to return later to discuss with his as well. He, nursing will notify me later when arrives. Assessment and Plan Disease Oriented Problem List: (1) Dehydration (2) Hyperkalemia (3) Anemia (4) Hyponatremia (5) Acute kidney failure (6) Stage IV adenocarcinoma of pancreas (7) Acute kidney injury Symptom Scale: (1) Malnutrition (2) Weakness Pertinent Non-Medical Issues Psychosocial: to his second , originally from [place]. Moved to [place] just recently in the past month for the warmer climate. Has 5 adult children from a prior marriage. Also raising his 2 young grandchildren with his , ages 6 years, 15 months. 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 Spiritual: Legal:Patient currently appears capacitated, clear and able to make his own decisions. patient indicates has completed advance directives designating his Jennifer as legal decision maker. We do not currently have copies of this documentation. In absence of these documents, per [place] statutes his would be legal decision maker. Ethical issues impacting care: Important Contacts Spouse Jennifer Hooker [phone] Son Kilo Hooker . Prognosis Limited records available regarding prior history and health. Fairly new diagnoses from April 2016, stage IV pancreatic cancer-- not clear if this was locally confined or more distant spread?, patient has been undergoing chemotherapy. Stage IV pancreatic cancer with very poor survival rate, approximately 1-2% at 5 years. Likely has been offered palliative treatments only, if locally confined pt could have months or years to live with disease process. Code Status: Full Code Plan * Legal decision maker:Patient currently appears capacitated, clear and able to make his own decisions. patient indicates has completed advance directives designating his Jennifer as legal decision maker. We do not currently have copies of this documentation. In absence of these documents, per [place] statutes his would be legal decision maker. * Goals: Met with patient at length at bedside. Appears to have a good understanding of his disease process and limited treatment options. Aggressive for now, patient wants to continue to try to be well enough to take chemotherapy. He does understand he has a life limiting disease. I did review with him today hospice role and philosophy should he continue to decline and not become stable enough to continue with chemotherapy. He would like me to meet additionally with his later today if possibly. * CODE STATUS: Full code * SYMPTOMS: --Malnutrition-ascribes approximately 4060 pound weight loss since diagnoses. Most recently endorses good appetite (except during acute hospitalization). Albumin 2.2 --Weakness-ongoing weakness patient describes limited physical activity, though subjectively indicates the worst of the weakness was just onset in the past couple of days following episodes of diarrhea. Appears more likely he has had progressive weakness over the past many months. He describes being primarily sedentary due to fatigue. Likely multifactorial: Malnutrition, underlying cancer process, anemia, chemotherapy. --Denies nausea, vomiting, pain. He Does endorse history of chronic shoulder pain for which he has recently been started on a fentanyl patch for which has provided him with adequate relief. Describes intermittent infrequent nausea, none currently. * Palliative care will continue to follow during hospital course as condition evolves, to assist patient/decision-maker with understanding of medical conditions, weighing benefits/burdens of treatment options, for clarification of goals of treatment. Additionally will assist with any symptoms of palliative concern Time Spent Total Floor Time (mins): 65 >50% Counseling/Coord of Care: Yes (discussed with PT, primary nurse) Thank you for the opportunity to participate in the care of Mr. Hooker. Attestation To help prompt me to consider important information that might be impacting today's encounter and assessment, information from prior notes written by myself or my colleagues may have been "brought forward" into today's note. My signature on this note, however, is an attestation that I personally performed the exam, history, and/or decision-making noted today, and, unless otherwise indicated, the interactions with patient, family, and staff as well as the review of records all occurred today. I also attest that the listed assessment and stated plan reflect my best clinical judgment today based on the combination of historical information, prior notes, and today's exam/ interactions. When time spent is documented, it refers only to time spent today by the signer, or if indicated, combined time spent today by collaborating physician/nurse practitioner. Yvonne Ho Dec 15, 2016 10:57
[2016-12-15] MEDS: SODIUM BICARBONATE 8.4% INJ 75 MEQ in SODIUM CHLOR 0.45% 1000 ML INJ 1,000 ML IV SCH (14:40)
[2016-12-15 18:09] LABS: BICARBONATE 21.1 MEQ/L (21.0-32.0); POTASSIUM 4.8 MEQ/L (3.5-5.1)
--- NOTE | 2016-12-15 20:28 | RADRPT ---
EXAM DATE/TIME: 12/15/2016 19:02 [facility] COMPARISON: No previous studies available for comparison. INDICATIONS : Ascites, renal failure. MEDICAL HISTORY : Hypertension. Carcinoma, pancreas. SURGICAL HISTORY : Tonsillectomy. Chemotherapy. ENCOUNTER: Initial ACUITY: 1 day PAIN SCORE: 0/10 LOCATION: Abdomen. MEASUREMENTS: LIVER: 10.4 cm length COMMON DUCT: 4 mm RIGHT KIDNEY: 8.4 x 4.3 x 5.3 cm LEFT KIDNEY: 8.2 x 5.1 x 4.3 cm SPLEEN: 10.1 cm length AORTA: 2.3cm maximal FINDINGS: LIVER: The liver is small and heterogeneous in appearance with findings consistent with cirrhosis with nodul ar outer contour. There is no mass or ductal dilatation. There is normal hepatopedal blood flow in th e portal vein. Is a moderate amount of ascitic fluid surrounding the liver. COMMON DUCT: No intraluminal mass or stone visualized. GALLBLADDER: Could not be visualized. PANCREAS: Could not be visualized due to overlying bowel gas. RIGHT KIDNEY: No hydronephrosis, stone or mass. LEFT KIDNEY: No hydronephrosis, stone or mass. SPLEEN: No focal lesion. AORTA: Non aneurysmal. IVC: Not distinctly visualized. CONCLUSION: 1. Moderate amount of ascitic fluid. 2. Small cirrhotic liver. 3. Suboptimal visualization of the gallbladder and pancreas. Stu Lima MD on December 15, 2016 at 20:25 Board Certified Radiologist. This report was verified electronically.
[2016-12-16] VITALS (24 sets, daily range): BP systolic 80–108; BP diastolic 53–71; PULSE 80–97; RESP 16–18; TEMP 97.6–98.3; O2SAT 97–100
[2016-12-16] MEDS: HEPARIN SODIUM - SQ 10,000 UNITS/ML VIAL SQ SCH ×3 (03:41→20:14)
[2016-12-16 05:12] LABS: AUTOMATED NEUTROPHIL # 1.2 TH/MM3 (1.8-7.7); BASOPHIL % 0.2 % (0.0-2.0); EOSINOPHIL % 0.4 % (0.0-4.0); HEMATOCRIT 28.8 % (39.0-51.0); LYMPH % 46.1 % (9.0-44.0); MEAN CELL VOLUME 109.8 FL (80.0-100.0); MEAN CORPUSCULAR HGB CONC 33.7 % (32.0-36.0); MONO % 2.3 % (0.0-8.0); PLATELET COUNT 38 TH/MM3 (150-450); RED BLOOD COUNT 2.63 MIL/MM3 (4.50-5.90); RED CELL DISTRIBUTION WIDTH 26.8 % (11.6-17.2); WHITE BLOOD COUNT 2.3 TH/MM3 (4.0-11.0)
[2016-12-16 05:16] LABS: HEMO FLAGS AUTO DIFF
[2016-12-16 05:40] LABS: BICARBONATE 21.1 MEQ/L (21.0-32.0); POTASSIUM 4.9 MEQ/L (3.5-5.1)
[2016-12-16 06:57] LABS: PLATELET ESTIMATE SMEAR RARE (NORMAL); PLATELET MORPHOLOGY NORMAL (NORMAL); SCAN/DIFF AUTO DIFF CONFIRMED
[2016-12-16 06:58] LABS: BURR CELLS 1+ (NORMAL); SMUDGE CELLS PRESENT PRESENT
[2016-12-16 06:59] LABS: KERATOCYTES OCC (NORMAL)
[2016-12-16] MEDS: ALBUMIN HUMAN 25% 12.5 GM/50 ML BAGP IV SCH ×2 (08:00→20:15)
[2016-12-16] MEDS: SODIUM CHLORIDE 0.9% FLUSH 5 ML FLUSH FLUSH SCH ×2 (08:01→20:14)
--- NOTE | 2016-12-16 08:26 | HHI.PR ---
Subjective Remarks Follow-up pancreatic cancer, anemia, hyperkalemia. Patient states that he feels better today. Still has abdominal distention and is asking about paracentesis. He last had paracentesis 3 weeks ago and states that he has to get them approximately every 3 weeks. Denies chest pain or dyspnea. Objective Vitals Vital Signs Date Time Temp Pulse Resp B/P Pulse Ox O2 Delivery O2 Flow Rate FiO2 12/16/16 05:00 89 12/16/16 04:00 91 12/16/16 03:00 91 12/16/16 03:00 98.3 91 93/70 99 12/16/16 02:00 94 12/16/16 01:00 94 12/16/16 00:00 97 12/15/16 23:00 98.2 97 92/60 98 12/15/16 23:00 97 12/15/16 22:00 95 12/15/16 21:00 96 12/15/16 20:00 105 12/15/16 19:00 97 12/15/16 19:00 98.1 97 85/62 100 12/15/16 18:00 95 12/15/16 17:00 96 12/15/16 16:00 97 12/15/16 15:00 98 12/15/16 15:00 97.9 99 18 100/77 98 12/15/16 14:00 96 12/15/16 13:00 98 12/15/16 12:00 99 12/15/16 11:00 95 12/15/16 11:00 97.7 98 18 89/66 98 12/15/16 10:00 93 12/15/16 09:00 96 12/15/16 09:00 98.8 97 18 101/69 98 12/15/16 08:52 93 20 89/59 99 I/O 12/15/16 12/15/16 12/15/16 12/16/16 12/16/16 12/16/16 07:00 15:00 23:00 07:00 15:00 23:00 Intake Total 361 ml 120 ml Output Total 150 ml Balance 361 ml -30 ml Intake Oral 240 ml 120 ml IV Total 121 ml Output Urine Total 150 ml # Voids 1 # Bowel Movements 1 Result Diagram: 12/16/16 0445 12/16/165 Imaging Last Impressions Chest X-Ray 12/15/16 0142 Signed Impressions: Service Date/Time: Thursday, December 15, 2016 02:10 - CONCLUSION: No acute disease. Gurmeet Elias MD Abdomen Ultrasound 12/15/16 0000 Signed Impressions: Service Date/Time: Thursday, December 15, 2016 19:02 - CONCLUSION: 1. Moderate amount of ascitic fluid. 2. Small cirrhotic liver. 3. Suboptimal visualization of the gallbladder and pancreas. Stu Lima MD Objective Remarks General: No acute distress. Heart: Regular rate and rhythm. No murmur. Lungs: Clear to auscultation bilaterally. No wheezes, rales, or rhonchi. Breathing is nonlabored. Abdomen: Soft, nontender, moderately distended. Extremities: 1+ bilateral lower extremity edema. Psych: Alert, answers questions appropriately. Procedures None Urinary Catheter: No Vascular Central Line Catheter: No A/P Problem List: (1) Dehydration ICD Code: E86.0 Status: Acute (2) Accident due to mechanical fall without injury ICD Code: W19.XXXA Status: Acute (3) Anemia ICD Code: D64.9 Status: Acute (4) Stage IV adenocarcinoma of pancreas ICD Code: C25.9 Status: Chronic (5) Acute kidney failure ICD Code: N17.9 Status: Acute (6) Hyperkalemia ICD Code: E87.5 Status: Acute (7) Hyponatremia ICD Code: E87.1 Status: Acute Assessment and Plan 1. Stage IV pancreatic cancer: Being treated as outpatient with chemotherapy. Patient sees Dr. Art at [facility] for oncology. Appreciate palliative care recommendations. Consult oncology. 2. Anemia: Likely chronic secondary to cancer, chemotherapy. Monitor H&H and transfuse if necessary. 3. Hyperkalemia: Resolved. 4. Acute renal failure secondary to dehydration: Appreciate nephrology recommendations. 5. Hyponatremia: Resolved. 6. Multiple falls: Physical therapy eval. 7. DVT prophylaxis: Heparin. 8. Ascites: We'll request ultrasound guided paracentesis. Rusty Valdivia MD Dec 16, 2016 08:26
--- NOTE | 2016-12-16 11:04 | HHI.HCPN ---
Reason for visit a. To assist with evaluation and management of symptoms including: weakness , fatigue, shoulder pain b. To assist medical decision maker(s) with: better understanding of current medical conditions; weighing benefits/burdens of medical treatment options; making medical treatment decisions. . Subjective/Interval History INTERVAL NOTE: Patient tells me he has not been having much pain recently. He was on a fentanyl patch at home for a short time for musculoskeletal shoulder pain, but the side effects (fatigue, constipation) exceeded the benefits for him and he does not use it. He does have some oxycodone at home that he uses on an occasional basis. No pain at this time. He says he would be scheduled for chemotherapy tomorrow, but he says that has been postponed. No dyspnea or nausea. His is to bring in the home medicine list so he can get restarted on his pancreatic enzymes. Overall, he says he feels better today than he did the last couple days. As Per initial consultation note by Magaly Ho DNP on 12/15/16: This 66 yr old into to the ED on 12/15/16 around 1 AM. he apparently sustained a mechanical fall when getting up to use the restroom. He reported some generalized weakness that evening denying any injury related to the fall. Denies loss of consciousness, neck or extremity pain. EMS was activated to assist to get him up. Patient BP noted to be low 90s systolic patient was brought to the ED for further evaluation and management. At arrival to the ED patient was alert. Reporting known history of stage IV pancreatic cancer. Just diagnosed April 2016. Follows outpatient with oncology here as well as up [place] [id number]. Chemotherapy was received on Tuesday. Last paracentesis done 3 weeks ago. Next paracentesis reported to be scheduled for this . Patient reports history of hypertension requiring medication however had recently been discontinued with lower blood pressures recently. Recent baseline 951 10 systolic. Reports recent constipation--laxative yesterday this was followed by multiple bouts of diarrhea. Patient denied other symptoms of fever, cough, congestion, neck pain, chest pain shortness of breath abdominal pain and vomiting urinary symptoms or any other neurologic symptoms. * ED course: CXR= no acute process. EKG= sinus tachycardia. Initiated on IV fluid bolus. CBC notable for WBC 4.6, platelets 103. CMP notable for hyponatremia 132, potassium 6.3, BUN 50/creatinine 2.38. Total bilirubin 1.8 alkaline phosphatase 188, albumin 2.2. No prior labs available in our medical records for comparison. Received treatment with Kayexalate, D50, insulin, calcium gluconate. The received nebulizers. Hyperkalemia felt to be contributing to generalized weakness. He was admitted for further evaluation and management. * Records from oncology [facility] requested (Dr Art). Palliative care consulted to assist with clarification of goals of treatment. Some concern that patient capacity may be impaired, noted to be poor historian by medical attending. nephrology consult also pending. Patient seen in room as physical therapy is working with him, completing evaluation. He indicates he still feels weak and he "doesn't know if he is ready for this "in terms of trying to get up with PT. PT advised best to maintain his strength and work with therapy sooner rather than later. Exam, consultation completed after PT concluded. Patient has just returned to bed he also got up to use bedside commode. (*Note small amount of liquid school , with some cristiane red present.) He indicates he is feeling tired and weak. He is alert, oriented, appropriate, seems to have reasonable insight and report of his oncology diagnoses and trajectory thus far. He tells me the date and month of original diagnoses, it all started after he was feeling nauseous, upset stomach following a cookout he hosted, he presented to his primary --they initially thought he was having cholecystitis however CT imaging revealed findings of advanced pancreatic cancer. He indicates he has widespread metastasis to multiple organs including lung, liver, stomach, other areas within the abdomen and that surgery was not presented as an option. He was offered palliative chemotherapy, he understands that he is not expected to have long life expectancy with current diagnoses that he will succumb to this however he wished to proceed with chemotherapy to gain one other time he may have by reducing disease burden. He indicates that overall he had been doing "okay "with ongoing therapy he describes mild weakness, fairly significant weight loss of 40-60 pounds since diagnoses in April 2016, but that otherwise overall day-to-day felt okay. Still ambulatory though required frequent rest, and was primarily sedentary during the day. Essentially ROS negative; primarily complains of weakness, new onset diarrhea at home. He indicates having been on a fentanyl patch for fairly recent though now sounding chronic shoulder pain, which resulted in constipation and required multiple laxatives, enemas etc., he indicates this led to diarrhea and that is when his current state of weakness and falls began. (In the past days). Patient just moved to the area in November of this year, just began following with Dr. Art oncology this past month. He was to do for next scheduled paracentesis for ascites this , was due for next round of IV chemotherapy on Tuesday of this week. Family/friend interactions The patient's arrived and entered into the discussion. She confirms that the patient has a living will, DNR, and DPOA, and that they definitely do not want resuscitation. They both have a good understanding of hospice services, and plan on transitioning to hospice when the patient feels that the chemotherapy is no longer helping him or when it becomes too symptomatic to tolerate. . Advance Directives Living Will: Completed, but not made available Health Care Surrogate: Completed, but not made available (patient indicates has completed advance directives designating his Jennifer as legal decision maker. We do not currently have copies of this documentation.) Durable Power of Nursing Home Aide: Completed, but not made available Advance Directive Specifics Health Care Surrogate(s): . Documented care wishes: The patient has a living will and DNR. . Objective Vital Signs Date Time Temp Pulse Resp B/P Pulse Ox O2 Delivery O2 Flow Rate FiO2 12/16/16 10:00 87 12/16/16 09:00 80 12/16/16 08:00 91 12/16/16 07:00 95 12/16/16 07:00 98.0 85 18 89/56 97 12/16/16 05:00 89 12/16/16 04:00 91 12/16/16 03:00 91 12/16/16 03:00 98.3 91 93/70 99 12/16/16 02:00 94 12/16/16 01:00 94 12/16/16 00:00 97 12/15/16 23:00 98.2 97 92/60 98 12/15/16 23:00 97 12/15/16 22:00 95 12/15/16 21:00 96 12/15/16 20:00 105 12/15/16 19:00 97 12/15/16 19:00 98.1 97 85/62 100 12/15/16 18:00 95 12/15/16 17:00 96 12/15/16 16:00 97 12/15/16 15:00 98 12/15/16 15:00 97.9 99 18 100/77 98 12/15/16 14:00 96 12/15/16 13:00 98 12/15/16 12:00 99 12/15/16 11:00 95 12/15/16 11:00 97.7 98 18 89/66 98 Intake & Output 12/16/16 12/16/16 07:00 19:00 Intake Total 120 ml Output Total 150 ml Balance -30 ml Intake Oral 120 ml Output Urine Total 150 ml Physical Exam CONSTITUTIONAL/GENERAL: Frail-appearing man, examined in bed, in no apparent distress. TUBES/LINES/DRAINS: Peripheral IV right upper extremity SKIN: No jaundice, rashes, or lesions. Multiple areas of ecchymosis and skin tears to bilateral upper extremities. Several areas of ecchymosis to lower extremities, as well as chronic skin thickening and scaling to bilateral lower extremities. Significant edema to lower extremities from knees down. ENT: Hearing grossly normal. Nose without bleeding or purulent drainage. CARDIOVASCULAR: Regular rate and rhythm , no murmurs. No JVD. Peripheral pulses symmetric. 2+ edema to bilateral lower extremities from the knee down. RESPIRATORY/CHEST: Symmetric, unlabored respirations on room air. Clear to auscultation. Breath sounds equal bilaterally. GASTROINTESTINAL: Abdomen soft, non-tender, +distended. + ascites. No guarding. Bowel sounds present. Patient recently to bedside commode for bowel movement, observe small amount liquid output with cristiane red present. GENITOURINARY: Without palpable bladder distension. Reports to void to bedside. MUSCULOSKELETAL: Extremities without clubbing, cyanosis. No joint tenderness or effusion noted. No mottling or clubbing. NEUROLOGICAL: Awake and alert-oriented 3. Appropriate follows conversation easily. Insight seems reasonable to good. Follows commands. Cognitively sharp. Moves all 4 extremities. PSYCHIATRIC: No obvious anxiety/depression. no apparent hallucinations or other psychotic thought process. . Diagnostic Tests Laboratory Laboratory Tests Test 12/15/16 12/15/16 12/15/16 12/15/16 02:00 02:20 04:55 07:48 Sodium Level 132 MEQ/L 135 MEQ/L 136 MEQ/L (136-145) (136-145) (136-145) Potassium Level 6.3 MEQ/L 4.7 MEQ/L 5.1 MEQ/L (3.5-5.1) (3.5-5.1) (3.5-5.1) Chloride Level 104 MEQ/L 103 MEQ/L 105 MEQ/L (98-107) (98-107) (98-107) Carbon Dioxide Level 13.4 MEQ/L 16.9 MEQ/L 18.6 MEQ/L (21.0-32.0) (21.0-32.0) (21.0-32.0) Anion Gap 15 MEQ/L (5-15) 15 MEQ/L (5-15) 12 MEQ/L (5-15) Blood Urea Nitrogen 50 MG/DL (7-18) 48 MG/DL (7-18) 48 MG/DL (7-18) Creatinine 2.38 MG/DL 2.26 MG/DL 2.12 MG/DL (0.60-1.30) (0.60-1.30) (0.60-1.30) Estimat Glomerular Filtration 27 ML/MIN (>89) 29 ML/MIN (>89) 31 ML/MIN (>89) Rate Random Glucose 136 MG/DL 182 MG/DL 135 MG/DL (74-106) (74-106) (74-106) Calcium Level 8.3 MG/DL 8.2 MG/DL 8.2 MG/DL (8.5-10.1) (8.5-10.1) (8.5-10.1) Magnesium Level 2.9 MG/DL (1.5-2.5) Total Bilirubin 1.8 MG/DL (0.2-1.0) Aspartate Amino Transf 35 U/L (15-37) (AST/SGOT) Alanine Aminotransferase 17 U/L (12-78) (ALT/SGPT) Alkaline Phosphatase 188 U/L (45-117) B-Type Natriuretic Peptide 161 PG/ML (0-100) Total Protein 6.3 GM/DL (6.4-8.2) Albumin 2.2 GM/DL (3.4-5.0) Prothrombin Time 20.6 SEC (9.8-11.6) Prothromb Time International 1.8 RATIO Ratio Activated Partial 33.8 SEC Thromboplast Time (24.3-30.1) White Blood Count 4.6 TH/MM3 (4.0-11.0) Red Blood Count 2.85 MIL/MM3 (4.50-5.90) Hemoglobin 10.6 GM/DL (13.0-17.0) Hematocrit 31.6 % (39.0-51.0) Mean Corpuscular Volume 110.9 FL (80.0-100.0) Mean Corpuscular Hemoglobin 37.0 PG (27.0-34.0) Mean Corpuscular Hemoglobin 33.4 % Concent (32.0-36.0) Red Cell Distribution Width 26.5 % (11.6-17.2) Platelet Count 103 TH/MM3 (150-450) Mean Platelet Volume 11.7 FL (7.0-11.0) Neutrophils (%) (Auto) 88.8 % (16.0-70.0) Lymphocytes (%) (Auto) 9.6 % (9.0-44.0) Monocytes (%) (Auto) 1.2 % (0.0-8.0) Eosinophils (%) (Auto) 0.1 % (0.0-4.0) Basophils (%) (Auto) 0.3 % (0.0-2.0) Neutrophils # (Auto) 4.1 TH/MM3 (1.8-7.7) Lymphocytes # (Auto) 0.4 TH/MM3 (1.0-4.8) Monocytes # (Auto) 0.1 TH/MM3 (0-0.9) Eosinophils # (Auto) 0.0 TH/MM3 (0-0.4) Basophils # (Auto) 0.0 TH/MM3 (0-0.2) CBC Comment AUTO DIFF Differential Comment AUTO DIFF CONFIRMED Platelet Estimate LOW (NORMAL) Platelet Morphology Comment NORMAL (NORMAL) Ovalocytes 1+ (NORMAL) Sonu Cells 1+ (NORMAL) Acanthocytes OCC (NORMAL) Test 12/15/16 12/16/16 16:47 04:45 Sodium Level 135 MEQ/L 136 MEQ/L (136-145) (136-145) Potassium Level 4.8 MEQ/L 4.9 MEQ/L (3.5-5.1) (3.5-5.1) Chloride Level 104 MEQ/L 106 MEQ/L (98-107) (98-107) Carbon Dioxide Level 21.1 MEQ/L 21.1 MEQ/L (21.0-32.0) (21.0-32.0) Anion Gap 10 MEQ/L (5-15) 9 MEQ/L (5-15) Blood Urea Nitrogen 52 MG/DL (7-18) 55 MG/DL (7-18) Creatinine 2.19 MG/DL 2.43 MG/DL (0.60-1.30) (0.60-1.30) Estimat Glomerular Filtration 30 ML/MIN (>89) 27 ML/MIN (>89) Rate Random Glucose 137 MG/DL 150 MG/DL (74-106) (74-106) Calcium Level 7.8 MG/DL 7.9 MG/DL (8.5-10.1) (8.5-10.1) White Blood Count 2.3 TH/MM3 (4.0-11.0) Red Blood Count 2.63 MIL/MM3 (4.50-5.90) Hemoglobin 9.7 GM/DL (13.0-17.0) Hematocrit 28.8 % (39.0-51.0) Mean Corpuscular Volume 109.8 FL (80.0-100.0) Mean Corpuscular Hemoglobin 37.0 PG (27.0-34.0) Mean Corpuscular Hemoglobin 33.7 % Concent (32.0-36.0) Red Cell Distribution Width 26.8 % (11.6-17.2) Platelet Count 38 TH/MM3 (150-450) Mean Platelet Volume 11.0 FL (7.0-11.0) Neutrophils (%) (Auto) 51.0 % (16.0-70.0) Lymphocytes (%) (Auto) 46.1 % (9.0-44.0) Monocytes (%) (Auto) 2.3 % (0.0-8.0) Eosinophils (%) (Auto) 0.4 % (0.0-4.0) Basophils (%) (Auto) 0.2 % (0.0-2.0) Neutrophils # (Auto) 1.2 TH/MM3 (1.8-7.7) Lymphocytes # (Auto) 1.0 TH/MM3 (1.0-4.8) Monocytes # (Auto) 0.1 TH/MM3 (0-0.9) Eosinophils # (Auto) 0.0 TH/MM3 (0-0.4) Basophils # (Auto) 0.0 TH/MM3 (0-0.2) CBC Comment AUTO DIFF Differential Comment AUTO DIFF CONFIRMED Smudge Cells PRESENT Platelet Estimate RARE (NORMAL) Platelet Morphology Comment NORMAL (NORMAL) [place] Cells 1+ (NORMAL) Keratocytes OCC (NORMAL) Result Diagram: 12/16/16 0445 12/16/16 0445 Imaging Last Impressions Chest X-Ray 12/15/16 0142 Signed Impressions: Service Date/Time: Thursday, December 15, 2016 02:10 - CONCLUSION: No acute disease. Gurmeet Elias MD Abdomen Ultrasound 12/15/16 0000 Signed Impressions: Service Date/Time: Thursday, December 15, 2016 19:02 - CONCLUSION: 1. Moderate amount of ascitic fluid. 2. Small cirrhotic liver. 3. Suboptimal visualization of the gallbladder and pancreas. Stu Lima MD Assessment and Plan Disease Oriented Problem List: (1) Stage IV adenocarcinoma of pancreas (2) Acute kidney injury (3) Dehydration (4) Hyperkalemia (5) Anemia (6) Hyponatremia (7) Acute kidney failure Symptom Scale: (1) Malnutrition (2) Weakness Pertinent Non-Medical Issues Psychosocial: to his second , originally from [place]. Moved to [place] just recently in the past month for the warmer climate. Has 5 adult children from a prior marriage. Also raising his 2 young grandchildren with his , ages 6 years, 15 months. Career [place] man, retired from the [employer] in 1988. 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 Spiritual: Legal: Patient currently appears capacitated, clear and able to make his own decisions. patient and indicate that he has completed advance directives designating his Jennifer as legal decision maker. We do not currently have copies of this documentation. In absence of these documents, per [place] statutes his would be legal decision maker. Ethical issues impacting care: None. . Important Contacts Spouse Jennifer Hooker [phone] Son Kilo Hooker . Prognosis Limited records available regarding prior history and health. Fairly new diagnoses from April 2016, stage IV pancreatic cancer, patient has been undergoing chemotherapy. Stage IV pancreatic cancer with very poor survival rate, approximately 1-2% at 5 years. He will be appropriate for hospice services when the burden of the chemotherapy side effects becomes too great for him, or when he is no longer able to tolerate that chemotherapy. . Code Status: No Code Plan * CODE STATUS: DO NOT RESUSCITATE, confirmed by patient and 12/16/16 * DECISION-MAKING: Patient currently appears capacitated, clear and able to make his own decisions. patient indicates has completed advance directives designating his Jennifer as legal decision maker. We do not currently have copies of this documentation. In absence of these documents, per [place] statutes his would be legal decision maker. * GOALS: Met with patient and at bedside. They both appear to have a good understanding of his disease process and limited treatment options. The patient 's confirms that the patient has a living will, DNR, and DPOA, and that they definitely do not want resuscitation. They both have a good understanding of hospice services, and plan on transitioning to hospice when the patient feels that the chemotherapy is no longer helping him or when it becomes too symptomatic to tolerate. * SYMPTOMS: --Malnutrition-ascribes approximately 4060 pound weight loss since diagnoses. Most recently endorses good appetite (except during acute hospitalization). Albumin 2.2. His pancreatic enzymes are to be restarted... --Weakness-ongoing weakness patient describes limited physical activity, though subjectively indicates the worst of the weakness was just onset in the past couple of days following episodes of diarrhea. Appears more likely he has had progressive weakness over the past many months. He describes being primarily sedentary due to fatigue. Likely multifactorial: Malnutrition, underlying cancer process, anemia, chemotherapy. --Denies nausea, vomiting, pain. He does endorse history of chronic shoulder pain, and he has some oxycodone at home that he takes just occasionally for pain * Palliative care will continue to follow during hospital course as condition evolves, to assist patient/decision-maker with understanding of medical conditions, weighing benefits/burdens of treatment options, for clarification of goals of treatment. Additionally will assist with any symptoms of palliative concern. . Time Spent Total Floor Time (mins): 41 Face to Face Time (mins): 28 >50% Counseling/Coord of Care: Yes (d/w RN) Attestation To help prompt me to consider important information that might be impacting today's encounter and assessment, information from prior notes written by myself or my colleagues may have been "brought forward" into today's note. My signature on this note, however, is an attestation that I personally performed the exam, history, and/or decision-making noted today, and, unless otherwise indicated, the interactions with patient, family, and staff as well as the review of records all occurred today. I also attest that the listed assessment and stated plan reflect my best clinical judgment today based on the combination of historical information, prior notes, and today's exam/ interactions. When time spent is documented, it refers only to time spent today by the signer, or if indicated, combined time spent today by collaborating physician/nurse practitioner. Marbella Vallejo MD Dec 16, 2016 11:04
--- NOTE | 2016-12-16 11:32 | HHI.NPPN ---
Subjective Complaints: Shortness of Breath General Problems: Edema Renal Failure: Acute Interval History at bedside. Creatinine increased overnight. IVF with Bicarb still infusing. He has ascites per US report. (Nita Kenny) Review of Systems Respiratory Lungs: SOB (Nita Kenny) Cardiovascular Cardiac: Edema (Nita Kenny) Objective Data Data 12/15/16 12/16/16 19:00 07:00 Intake Total 361 ml 120 ml Output Total 150 ml Balance 361 ml -30 ml Intake Oral 240 ml 120 ml IV Total 121 ml Output Urine Total 150 ml # Voids 1 # Bowel Movements 1 Vital Signs Date Time Temp Pulse Resp B/P Pulse Ox O2 Delivery O2 Flow Rate FiO2 12/16/16 10:00 87 12/16/16 09:00 80 12/16/16 08:00 91 12/16/16 07:00 95 12/16/16 07:00 98.0 85 18 89/56 97 12/16/16 05:00 89 12/16/16 04:00 91 12/16/16 03:00 91 12/16/16 03:00 98.3 91 93/70 99 12/16/16 02:00 94 12/16/16 01:00 94 12/16/16 00:00 97 12/15/16 23:00 98.2 97 92/60 98 12/15/16 23:00 97 12/15/16 22:00 95 12/15/16 21:00 96 12/15/16 20:00 105 12/15/16 19:00 97 12/15/16 19:00 98.1 97 85/62 100 12/15/16 18:00 95 12/15/16 17:00 96 12/15/16 16:00 97 12/15/16 15:00 98 12/15/16 15:00 97.9 99 18 100/77 98 12/15/16 14:00 96 12/15/16 13:00 98 12/15/16 12:00 99 (Nita Kenny) -: 12/16/16 0445 12/16/16 0445 Imaging Last 72 hours Impressions Chest X-Ray 12/15/16 0142 Signed Impressions: Service Date/Time: Thursday, December 15, 2016 02:10 - CONCLUSION: No acute disease. Gurmeet Elias MD Abdomen Ultrasound 12/15/16 0000 Signed Impressions: Service Date/Time: Thursday, December 15, 2016 19:02 - CONCLUSION: 1. Moderate amount of ascitic fluid. 2. Small cirrhotic liver. 3. Suboptimal visualization of the gallbladder and pancreas. Stu Lima MD (Zoya,Nita B. MANAGER OF PLANNING) Physical Exam General Appearance: No Acute Distress, Comfortable, Malnourished (Zoya,Nita B. MANAGER OF PLANNING) Eyes Eye Exam: Pupils Equal (Zoya,Nita B. MANAGER OF PLANNING) Throat Throat Exam: Oral Mucosa [place] & Moist (Zoya,Nita B. MANAGER OF PLANNING) Neck Neck Exam: Neck Supple (Zoya,Nita B. MANAGER OF PLANNING) Pulmonary Resp Exam: Clear Bilaterally, Breath Sounds Equal (Zoya,Nita B. MANAGER OF PLANNING) Cardiology CV Exam: Regular, Normal Sinus Rhythm (Zoya,Nita B. MANAGER OF PLANNING) Gastrointestinal/Abdomen GI Exam: Soft, Non-Tender, Distended GI Remarks ascites (Zoya,Nita B. MANAGER OF PLANNING) Musculoskeletal MS Exam: Joints Intact, Good Strength (Zoya,Nita B. MANAGER OF PLANNING) Integumentary Skin Exam: Clear, Warm, Dry, Intact (Zoya,Inta B. MANAGER OF PLANNING) Extremeties Extremities Exam: Pedal Pulses Palpable, Moderate Edema (Zoya,Nita B. MANAGER OF PLANNING) Neurologic Neuro Exam: Alert, Awake, Oriented, Speech Clear, Moving All Extremities ( Zoya,Nita B. MANAGER OF PLANNING) Assessment/Plan Discussed Condition With: Patient, Spouse Problem List: (1) Acute kidney injury Plan: baseline renal function is apparently normal. May have developed WILIAN due to intravascular volume depletion, pre-renal azotemia. no obstruction on US report creatinine did increase slightly overnight he is oliguric He is on 1/2 NS with 75 mEq sodium bicarb, continue UA ordered, awaiting results In the meantime Avoid nephrotoxic agents. continue supportive measures Monitor urine output and renal function. (2) Hyperkalemia Plan: corrected, Likely due to Spironolactone and renal insufficiency. Avoid Kayexalate if possible. Monitor for recurrence (3) Hyponatremia Plan: Improved, likely due to non osmotic release of ADH. (4) Stage IV adenocarcinoma of pancreas Plan: has been on chemotherapy. (5) Malignant ascites Plan: US report reviewed. Paracentesis scheduled but INR elevated and platelet count is low defer to medical team regarding plan of care (6) Thrombocytopenia Plan: transfuse if needed, monitor for bleeding (Nita Kenny) Plan patient was seen and examined. Renal function is worse, but hyperkalemia has improved. Urine output has dropped. Will have Garcia placed. Very poor prognosis. Not a candidate for dialysis. (Mp Navarro MD) Nita Kenny Dec 16, 2016 11:32 Mp Navarro MD Dec 16, 2016 14:39
[2016-12-16] MEDS: SODIUM BICARBONATE 8.4% INJ 75 MEQ in SODIUM CHLOR 0.45% 1000 ML INJ 1,000 ML IV SCH (12:00)
[2016-12-16 12:55] LABS: INTERNATIONAL NORMALIZED RATIO 1.8 RATIO; PROTHROMBIN TIME - PATIENT 20.1 SEC (9.8-11.6)
[2016-12-16] MEDS ORDERED: MIRT30TA PO (13:49)
[2016-12-16] MEDS ORDERED: TRAZ50TA12 PO (13:49)
[2016-12-16] MEDS ORDERED: PRIL20CA9 PO (13:49)
[2016-12-16] MEDS ORDERED: SPIR25TA PO (13:49)
[2016-12-16] MEDS ORDERED: ZENP1000 PO (13:49)
[2016-12-16] MEDS ORDERED: LORA-474 PO (13:51)
[2016-12-16] MEDS ORDERED: ZOFR8TAB PO (13:51)
[2016-12-16] MEDS ORDERED: PROC10TA PO (13:51)
--- NOTE | 2016-12-16 16:13 | RADRPT ---
EXAM DATE/TIME: 12/16/2016 13:12 [facility] COMPARISON: No previous studies available for comparison. INDICATIONS : Ascites. MEDICAL HISTORY : Hypertension. Pancreatic cancer. Fatigue. Chemotherapy. SURGICAL HISTORY : Tonsillectomy. ENCOUNTER: Initial ACUITY: 3 weeks PAIN SCORE: 0/10 LOCATION: Right lower quadrant FLUID: Total volume of 5000 cc of clear, yellow fluid was removed. Fluid was discarded. Paracentesis was therapeutic only. Post procedure scanning reveals no hematoma or other complication. TECHNIQUE: 1. Ultrasound guidance for abdominal paracentesis. 2. Paracentesis. The risks, benefits, and alternatives to ultrasound guided paracentesis were explained to the patient in detail including the risk of bleeding and infection. Written and verbal informed consent was obt ained. With the patient on the ultrasound table, ultrasound imaging was used to select the most appropriate approach for paracentesis. Overlying skin was prepped and draped in the usual sterile fashion and wi th a local anesthetic, a dermatotomy was made with an 11 blade scalpel. A 6 [id number] ca theter was introduced into the peritoneal cavity and fluid was collected. The patient tolerated the procedure well and left the ultrasound suite in stable condition. CONCLUSION: Uncomplicated ultrasound guided paracentesis. Domenic Charles MD on December 16, 2016 at 16:11 Board Certified Radiologist. This report was verified electronically.
[2016-12-16 17:05] LABS: BLOOD, URINE NEG (NEG); GLUCOSE,URINE NEG (NEG); KETONE, URINE NEG (NEG); NITRITE,URINE NEG (NEG); PH, URINE 5.5 (5.0-8.5); SQUAMOUS EPITHELIAL CELL URINE <1 /hpf (0-5)
[2016-12-16 17:07] LABS: COMMENT (UR) CATH-CULT NOT IND; CULTURE IF INDICATED CATH CULTURE NOT IND; URINE COLOR DARK-BROWN (YELLW/STRAW)
[2016-12-16] MEDS ORDERED: PANCRELIPASE PO SCH ×2 (18:30)
[2016-12-16] MEDS: PANTOPRAZOLE SOD 20 MG DELAYED RELEASE TAB PO SCH (20:14)
[2016-12-16] MEDS: traZODone HCL 50 MG TAB PO SCH (20:14)
[2016-12-16] MEDS: MIRTAZAPINE 15 MG TAB PO SCH (20:14)
[2016-12-17] VITALS (20 sets, daily range): BP systolic 82–108; BP diastolic 50–68; PULSE 74–95; RESP 18; TEMP 97.7–98.3; O2SAT 100
[2016-12-17] MEDS: HEPARIN SODIUM - SQ 10,000 UNITS/ML VIAL SQ SCH ×3 (04:15→22:29)
[2016-12-17 07:03] LABS: INTERNATIONAL NORMALIZED RATIO 1.7 RATIO; PROTHROMBIN TIME - PATIENT 19.2 SEC (9.8-11.6)
[2016-12-17 07:12] LABS: AUTOMATED NEUTROPHIL # 1.2 TH/MM3 (1.8-7.7); EOSINOPHIL % 0.6 % (0.0-4.0); HEMATOCRIT 27.1 % (39.0-51.0); LYMPH % 48.6 % (9.0-44.0); LYMPHOCYTE # 1.2 TH/MM3 (1.0-4.8); MEAN CELL VOLUME 107.7 FL (80.0-100.0); MEAN CORPUSCULAR HEMOGLOBIN 37.5 PG (27.0-34.0); MEAN CORPUSCULAR HGB CONC 34.8 % (32.0-36.0); MONO % 2.6 % (0.0-8.0); NEUT % 48.2 % (16.0-70.0); RED BLOOD COUNT 2.52 MIL/MM3 (4.50-5.90); RED CELL DISTRIBUTION WIDTH 26.7 % (11.6-17.2); WHITE BLOOD COUNT 2.4 TH/MM3 (4.0-11.0)
[2016-12-17 07:19] LABS: HEMO FLAGS AUTO DIFF
[2016-12-17 07:22] LABS: BICARBONATE 23.7 MEQ/L (21.0-32.0); MAGNESIUM 2.4 MG/DL (1.5-2.5); POTASSIUM 3.8 MEQ/L (3.5-5.1)
[2016-12-17 07:27] LABS: PLATELET COUNT 17 TH/MM3 (150-450)
--- NOTE | 2016-12-17 08:14 | HHI.PR ---
Subjective Remarks Follow up ascites, anemia, thrombocytopenia.The patient states that his abdomen feels less distended. He denies chest pain or dyspnea. He is concerned about his platelet count. Objective Vitals Vital Signs Date Time Temp Pulse Resp B/P Pulse Ox O2 Delivery O2 Flow Rate FiO2 12/17/16 06:00 74 12/17/16 05:00 79 12/17/16 04:29 95/67 100 12/17/16 04:00 78 12/17/16 03:00 81 12/17/16 02:00 79 12/17/16 02:00 79 12/17/16 01:00 81 12/17/16 00:00 85 12/16/16 23:00 98.2 84 95/54 100 12/16/16 23:00 84 12/16/16 22:00 80 12/16/16 21:00 80 12/16/16 20:00 80 12/16/16 19:00 88 12/16/16 19:00 98.1 88 96/53 100 12/16/16 18:00 81 12/16/16 17:00 85 12/16/16 16:00 87 12/16/16 15:00 97.9 80 16 99/63 99 12/16/16 15:00 88 12/16/16 14:00 84 12/16/16 13:47 97.6 88 16 108/71 100 12/16/16 13:00 87 12/16/16 12:00 82 12/16/16 11:00 98.1 80 16 80/54 99 12/16/16 11:00 80 12/16/16 10:00 87 12/16/16 09:00 80 I/O 12/16/16 12/16/16 12/16/16 12/17/16 12/17/16 12/17/16 07:00 15:00 23:00 07:00 15:00 23:00 Intake Total 120 ml 120 ml Output Total 150 ml 275 ml Balance -30 ml -155 ml Intake Oral 120 ml 120 ml Output Urine Total 150 ml 275 ml Result Diagram: 12/17/16 0516 12/17/16 0516 Imaging Last Impressions Cyst Biopsy Asp-Paracentesis US 12/16/16 0000 Signed Impressions: Service Date/Time: November 13:12 - CONCLUSION: Uncomplicated ultrasound guided paracentesis. Domenic Charles MD Chest X-Ray 12/15/16 0142 Signed Impressions: Service Date/Time: Thursday, December 15, 2016 02:10 - CONCLUSION: No acute disease. Gurmeet Elias MD Abdomen Ultrasound 12/15/16 0000 Signed Impressions: Service Date/Time: Thursday, December 15, 2016 19:02 - CONCLUSION: 1. Moderate amount of ascitic fluid. 2. Small cirrhotic liver. 3. Suboptimal visualization of the gallbladder and pancreas. Stu Lima MD Objective Remarks General: No acute distress. Heart: Regular rate and rhythm. No murmur. Lungs: Clear to auscultation bilaterally. No wheezes, rales, or rhonchi. Breathing is nonlabored. Abdomen: Soft, nontender, mildly distended. Extremities: 1+ bilateral lower extremity edema. Psych: Alert, answers questions appropriately. Procedures 12/16/16 paracentesis Urinary Catheter: No Vascular Central Line Catheter: No A/P Problem List: (1) Dehydration ICD Code: E86.0 Status: Acute (2) Accident due to mechanical fall without injury ICD Code: W19.XXXA Status: Acute (3) Anemia ICD Code: D64.9 Status: Acute (4) Stage IV adenocarcinoma of pancreas ICD Code: C25.9 Status: Chronic (5) Acute kidney failure ICD Code: N17.9 Status: Acute (6) Hyperkalemia ICD Code: E87.5 Status: Acute (7) Hyponatremia ICD Code: E87.1 Status: Acute Assessment and Plan 1. Stage IV pancreatic cancer: Being treated as outpatient with chemotherapy. Patient sees Dr. Art at [facility] for oncology. Appreciate palliative care recommendations. Oncology consult is pending. 2. Anemia: Likely chronic secondary to cancer, chemotherapy. Monitor H&H and transfuse if necessary. 3. Hyperkalemia: Resolved. 4. Acute renal failure secondary to dehydration: Appreciate nephrology recommendations. Creatinine improving slowly. 5. Hyponatremia: Resolved. 6. Multiple falls: Physical therapy eval. 7. DVT prophylaxis: Heparin. 8. Ascites: S/P paracentesis with removal of 5000ml of fluid on 12/16/16. 9. Thrombocytopenia, neutropenia: Heme/Onc consult pending. Neutropenic precautions. Rusty Valdivia MD Dec 17, 2016 08:14
[2016-12-17] MEDS: PANTOPRAZOLE SOD 20 MG DELAYED RELEASE TAB PO SCH ×2 (08:26→22:29)
[2016-12-17] MEDS: ALBUMIN HUMAN 25% 12.5 GM/50 ML BAGP IV SCH ×2 (08:26→22:30)
[2016-12-17] MEDS: SODIUM CHLORIDE 0.9% FLUSH 5 ML FLUSH FLUSH SCH (08:27)
[2016-12-17] MEDS ORDERED: SPIRONOLACTONE 25 MG TAB PO SCH (09:00)
[2016-12-17 09:37] LABS: BANDS 2 % (0-6); POLYS (SEG NEUTROPHILS) 41 % (16-70); WBC DIFF SAMPLE 100
[2016-12-17 09:38] LABS: SCAN/DIFF FINAL DIFF MANUAL
[2016-12-17 09:39] LABS: PLATELET ESTIMATE SMEAR RARE (NORMAL); PLATELET MORPHOLOGY NORMAL (NORMAL)
[2016-12-17 09:41] LABS: OVALOCYTES 1+ (NORMAL)
[2016-12-17 09:42] LABS: BURR CELLS 1+ (NORMAL)
--- NOTE | 2016-12-17 10:55 | MB ---
cc: RHIANNON REAGAN DATE OF CONSULTATION 12/17/2016 DATE OF [address] Rashawn Art CHIEF COMPLAINT Dr. Heath requested consultation for Mr. Hooker regarding metastatic pancreatic cancer. HISTORY OF PRESENT ILLNESS Mr. Hooker is a 66-year-old man well-known patient to Dr. Rashawn Art with stage IV pancreatic cancer. He is receiving palliative chemotherapy with gemcitabine and Xeloda. He describes having lower abdominal pain. He attributes the constipation to a fentanyl patch. He was taking bowel medication which finally worked. He stopped the fentanyl patch on his own. After several bouts of bowel movement and being unable to take p.o. he became orthostatic and fell when he was going to the bathroom. He presented to the emergency room on 12/15/2016. He had anemia, thrombocytopenia and acute renal insufficiency. He reports that his renal function was otherwise normal. He denies any significant hand-foot syndrome associated with the Xeloda. His hands are dry and chapped. He is pain free despite stopping the fentanyl patch. He has a poor appetite. He uses his Valentin-Pep prior to his meals. He denies any constipation at present. He was planning on taking a holiday from his chemotherapy for about two weeks. He feels like he needed to get better. He has a history of right lower extremity deep vein thromboses and pulmonary embolism. He has an IVC filter. PAST MEDICAL HISTORY 1. Stage IV pancreatic cancer on palliative chemotherapy 2. Hypertension 3. Right lower extremity deep vein thromboses 4. Edema 5. Gastroesophageal reflux past PAST SURGICAL HISTORY 1. Diagnostic biopsy 2. IVC filter placement 3. Port placement ALLERGIES NO KNOWN DRUG ALLERGIES. FAMILY HISTORY Significant for mother with valvular heart disease. SOCIAL HISTORY He lives with his , quit smoking in 2015, quit drinking alcohol April of 2016. Denies any illicit drug use. ALLERGIES NO KNOWN DRUG ALLERGIES. CURRENT MEDICATIONS Include: 1. Spironolactone 2. Remeron 3. Protonix 4. Trazodone 5. Ondansetron 6. Lorazepam 7. Unfractionated heparin PHYSICAL EXAMINATION Temperature 98.2, heart rate 74, blood pressure 95/67, saturation 100%. GENERAL: Mr. Hooker is a cachectic, chronically ill-appearing man who appears to be in no distress sitting upright in bed. HEAD, EYES, EARS, NOSE, AND THROAT: His pupils are round and reactive to light and accommodation. His face is unshaven and thin. NECK: Supple. LUNGS: Clear. CARDIOVASCULAR: Exam reveals a normal rate, rhythm. ABDOMEN: Benign. EXTREMITIES: Lower extremity with edema of the hands and feet with dry skin and an chapping, no cracking LABORATORY DATA Significant for pancytopenia, BUN and creatinine are elevated. EGFR is about 30%. ASSESSMENT/PLAN Mr. Hooker is a 66-year-old man with metastatic pancreatic cancer receiving palliative chemotherapy. He has toxicity from the chemotherapy and pain medication. I will discuss with Dr. Art further plans. The patient is requesting a holiday from the chemotherapy. He just received his gemcitabine which is associated with cytopenias mainly thrombocytopenia. We will monitor closely his platelet count. He has known deep vein thromboses. He is not on any anticoagulant therapy. He may benefit from DVT prophylaxis which was in place. We will monitor closely for any bleeding. He is advised to continue his Valentin-Pep or pancrelipase prior to his meals. Palliative care has been consulted and is following the patient. We will continue supportive treatment and monitor for date additional toxicity related to the chemotherapy which may be delayed. Typically, the cytopenias associated with gemcitabine are transient and would recover. He has stopped taking his Xeloda. His questions were answered to his satisfaction. MD LILLY James/DWAIN /8:38 AM /10:42 AM
--- NOTE | 2016-12-17 11:39 | HHI.NPPN ---
Subjective Complaints: Shortness of Breath General Problems: Edema Renal Failure: Acute Interval History Family at bedside. He had 5 liters removed via paracentesis yesterday, tolerated will although does report some bleeding at site which has stopped overnight. Renal function is better. He did have a robert placed. Platelet count 17 today. (Nita Kenny) Review of Systems Respiratory Lungs: SOB (Nita Kenny) Cardiovascular Cardiac: Edema (Nita Kenny) Genitourinary Remarks retention (Nita Kenny) Objective Data Data 12/16/16 12/17/16 19:00 07:00 Intake Total 120 ml Output Total 275 ml Balance -155 ml Intake Oral 120 ml Output Urine Total 275 ml Vital Signs Date Time Temp Pulse Resp B/P Pulse Ox O2 Delivery O2 Flow Rate FiO2 12/17/16 08:37 Room Air 12/17/16 07:30 97.7 80 18 90/50 100 12/17/16 06:00 74 12/17/16 05:00 79 12/17/16 04:29 95/67 100 12/17/16 04:00 78 12/17/16 03:00 81 12/17/16 02:00 79 12/17/16 02:00 79 12/17/16 01:00 81 12/17/16 00:00 85 12/16/16 23:00 98.2 84 95/54 100 12/16/16 23:00 84 12/16/16 22:00 80 12/16/16 21:00 80 12/16/16 20:00 80 12/16/16 19:00 88 12/16/16 19:00 98.1 88 96/53 100 12/16/16 18:00 81 12/16/16 17:00 85 12/16/16 16:00 87 12/16/16 15:00 97.9 80 16 99/63 99 12/16/16 15:00 88 12/16/16 14:00 84 12/16/16 13:47 97.6 88 16 108/71 100 12/16/16 13:00 87 12/16/16 12:00 82 (Nita Kenny) -: 12/17/16 0516 12/17/16 0516 Imaging Last 72 hours Impressions Cyst Biopsy Asp-Paracentesis US 12/16/16 0000 Signed Impressions: Service Date/Time: November 13:12 - CONCLUSION: Uncomplicated ultrasound guided paracentesis. Domenic Charles MD Chest X-Ray 12/15/16 0142 Signed Impressions: Service Date/Time: Thursday, December 15, 2016 02:10 - CONCLUSION: No acute disease. Gurmeet Elias MD Abdomen Ultrasound 12/15/16 0000 Signed Impressions: Service Date/Time: Thursday, December 15, 2016 19:02 - CONCLUSION: 1. Moderate amount of ascitic fluid. 2. Small cirrhotic liver. 3. Suboptimal visualization of the gallbladder and pancreas. Stu Lima MD Drip Comment IVF with bicarb (ZoyaNita B. PLAYROOM ATTENDANT) Physical Exam General Appearance: No Acute Distress, Comfortable, Malnourished (Zoya,Nita B. PLAYROOM ATTENDANT) Eyes Eye Exam: Pupils Equal (ZoyaNita B. PLAYROOM ATTENDANT) Throat Throat Exam: Oral Mucosa [place] & Moist (ZoyaNita B. PLAYROOM ATTENDANT) Neck Neck Exam: Neck Supple (Zoya,Nita B. PLAYROOM ATTENDANT) Pulmonary Resp Exam: Clear Bilaterally, Breath Sounds Equal (Zoya,Nita B. PLAYROOM ATTENDANT) Cardiology CV Exam: Regular, Normal Sinus Rhythm (Zoya,Nita B. PLAYROOM ATTENDANT) Gastrointestinal/Abdomen GI Exam: Soft, Non-Tender, Distended GI Remarks ascites improved (Zoya,Nita B. PLAYROOM ATTENDANT) Musculoskeletal MS Exam: Joints Intact, Good Strength (Zoya,Nita B. PLAYROOM ATTENDANT) Integumentary Skin Exam: Clear, Warm, Dry, Intact (Zoya,Nita B. PLAYROOM ATTENDANT) Extremeties Extremities Exam: Pedal Pulses Palpable, Moderate Edema (Zoya,Nita B. PLAYROOM ATTENDANT) Neurologic Neuro Exam: Alert, Awake, Oriented, Speech Clear, Moving All Extremities ( ZoyaNita B. PLAYROOM ATTENDANT) Assessment/Plan Discussed Condition With: Patient, Spouse Problem List: (1) Acute kidney injury Plan: baseline renal function is apparently normal. He developed WILIAN due to intravascular volume depletion, pre-renal azotemia. FeNa low (0.1%) confirming prerenal etiology he also had urinary retention, although it was not evident on US report, robert has been placed creatinine improved overnight He is on 1/2 NS with 75 mEq sodium bicarb, will change to 0.9% NS @ 75cc/hr, encouraged oral intake and taper off fluids UA is benign, no infection or protein monitor BP, low at times In the meantime Avoid nephrotoxic agents. continue supportive measures Monitor urine output and renal function. voiding trial when able (2) Hyperkalemia Plan: corrected, Likely due to Spironolactone use and renal insufficiency. monitor for recurrence, Spironolactone was restarted (3) Hyponatremia Plan: Improved, likely due to non osmotic release of ADH. (4) Stage IV adenocarcinoma of pancreas Plan: has been on chemotherapy. Oncology/hematology has evaluated, may defer next chemo dose palliative care has also evaluated, he is a DNR (5) Malignant ascites Plan: s/p 5 liters removed via paracentesis 12/06, (6) Thrombocytopenia Plan: drug related (chemo agent) should be self limiting transfuse if needed, monitor for bleeding (Nita Kenny) Plan patient was seen and examined. Low BP. Stop Spironolactone(hyperkalemia just corrected). Reduce IVF. Avoid nephrotoxic agents. Prognosis is poor. Obviously not a candidate for dialysis. (Mp Navarro MD) Nita Kenny Dec 17, 2016 11:39 Mp Navarro MD Dec 17, 2016 13:50
[2016-12-17] MEDS ORDERED: SODIUM CHLOR 0.9% 1000 ML INJ 1,000 ML IV SCH (11:45)
[2016-12-17] MEDS: traZODone HCL 50 MG TAB PO SCH (22:29)
[2016-12-17] MEDS: MIRTAZAPINE 15 MG TAB PO SCH (22:29)
[2016-12-18] VITALS (28 sets, daily range): BP systolic 93–102; BP diastolic 53–64; PULSE 70–109; RESP 16–18; TEMP 97.7–98.4; O2SAT 97–100
[2016-12-18] MEDS ORDERED: SODIUM CHLOR 0.9% 250 ML INJ 250 ML IV ONE (06:00)
[2016-12-18] MEDS ORDERED: ACETAMINOPHEN 325 MG TAB PO PRN (06:00)
[2016-12-18] MEDS ORDERED: diphenhydrAMINE HCL 25 MG CAP PO PRN (06:00)
[2016-12-18 07:23] LABS: HEMATOCRIT 26.5 % (39.0-51.0); MEAN CELL VOLUME 108.9 FL (80.0-100.0); MEAN CORPUSCULAR HEMOGLOBIN 36.7 PG (27.0-34.0); MEAN CORPUSCULAR HGB CONC 33.7 % (32.0-36.0); RED BLOOD COUNT 2.43 MIL/MM3 (4.50-5.90); RED CELL DISTRIBUTION WIDTH 26.3 % (11.6-17.2); WHITE BLOOD COUNT 2.8 TH/MM3 (4.0-11.0)
[2016-12-18 07:24] LABS: POTASSIUM 3.6 MEQ/L (3.5-5.1)
[2016-12-18 07:36] LABS: REVIEW FLAG FINAL
[2016-12-18 07:38] LABS: PLATELET COUNT 11 TH/MM3 (150-450)
--- NOTE | 2016-12-18 07:58 | HHI.PR ---
Subjective Remarks Follow up anemia, thrombocytopenia, hypotension. Patient has had low blood pressure this morning. He denies lightheadedness, dizziness, chest pain, dyspnea. BP improved in Trendelenburg position. Objective Vitals Vital Signs Date Time Temp Pulse Resp B/P Pulse Ox O2 Delivery O2 Flow Rate FiO2 12/18/16 06:00 78 12/18/16 05:00 75 12/18/16 04:00 76 12/18/16 03:40 97.8 78 18 102/63 100 12/18/16 03:00 75 12/18/16 02:00 77 12/18/16 01:00 78 12/18/16 00:25 Room Air 12/18/16 00:25 97.8 89 18 101/64 100 12/18/16 00:00 77 12/17/16 23:00 75 12/17/16 22:00 80 12/17/16 21:00 79 12/17/16 20:00 84 12/17/16 20:00 97.9 95 18 105/68 100 12/17/16 19:00 75 12/17/16 16:53 Room Air 12/17/16 16:53 97.8 81 18 108/66 100 12/17/16 16:00 75 12/17/16 12:00 80 12/17/16 11:59 82/55 12/17/16 11:33 98.3 78 18 86/57 12/17/16 11:33 Room Air 12/17/16 08:37 Room Air 12/17/16 08:00 85 I/O 12/17/16 12/17/16 12/17/16 12/18/16 12/18/16 12/18/16 07:00 15:00 23:00 07:00 15:00 23:00 Intake Total 120 ml 850 ml Output Total 275 ml 200 ml 275 ml Balance -155 ml 650 ml -275 ml Intake Oral 120 ml 450 ml IV Total 400 ml Output Urine Total 275 ml 200 ml 275 ml # Bowel Movements 1 Result Diagram: 12/18/16 0650 12/18/16 0650 Imaging Last Impressions Cyst Biopsy Asp-Paracentesis US 12/16/16 0000 Signed Impressions: Service Date/Time: November 13:12 - CONCLUSION: Uncomplicated ultrasound guided paracentesis. Domenic Charles MD Chest X-Ray 1/25/17 0142 Signed Impressions: Service Date/Time: Thursday, December 15, 2016 02:10 - CONCLUSION: No acute disease. Gurmeet Elias MD Abdomen Ultrasound 12/15/16 0000 Signed Impressions: Service Date/Time: Thursday, December 15, 2016 19:02 - CONCLUSION: 1. Moderate amount of ascitic fluid. 2. Small cirrhotic liver. 3. Suboptimal visualization of the gallbladder and pancreas. Stu Lima MD Objective Remarks General: No acute distress. Heart: Regular rate and rhythm. No murmur. Lungs: Clear to auscultation bilaterally. No wheezes, rales, or rhonchi. Breathing is nonlabored. Abdomen: Soft, nontender, mildly distended. Extremities: 1+ bilateral lower extremity edema. Psych: Alert, answers questions appropriately. Procedures 12/16/16 paracentesis Urinary Catheter: No Vascular Central Line Catheter: No A/P Problem List: (1) Dehydration ICD Code: E86.0 Status: Acute (2) Accident due to mechanical fall without injury ICD Code: W19.XXXA Status: Acute (3) Anemia ICD Code: D64.9 Status: Acute (4) Stage IV adenocarcinoma of pancreas ICD Code: C25.9 Status: Chronic (5) Acute kidney failure ICD Code: N17.9 Status: Acute (6) Hyperkalemia ICD Code: E87.5 Status: Acute (7) Hyponatremia ICD Code: E87.1 Status: Acute Assessment and Plan 1. Stage IV pancreatic cancer: Being treated as outpatient with chemotherapy. Patient sees Dr. Art at [facility] for oncology. Appreciate palliative care recommendations. Appreciate oncology recommendations. 2. Anemia: Likely chronic secondary to cancer, chemotherapy. Monitor H&H and transfuse if necessary. 3. Hyperkalemia: Resolved. 4. Acute renal failure secondary to dehydration: Appreciate nephrology recommendations. Creatinine improving slowly. 5. Hyponatremia: Resolved. 6. Multiple falls: Physical therapy eval. 7. DVT prophylaxis: Heparin. 8. Ascites: S/P paracentesis with removal of 5000ml of fluid on 12/16/16. 9. Thrombocytopenia, neutropenia: Transfuse platelets. Neutropenic precautions. Appreciate oncology recommendations. 10. Hypotension: Patient will receive IV fluids in addition to platelet transfusion. Monitor BP closely. May need more IV fluid bolus. Rusty Valdivia MD Dec 18, 2016 07:58
[2016-12-18] MEDS: PANTOPRAZOLE SOD 20 MG DELAYED RELEASE TAB PO SCH ×2 (08:56→21:19)
--- NOTE | 2016-12-18 08:59 | HHI.NPPN ---
Subjective Complaints: Shortness of Breath General Problems: Edema Renal Failure: Acute Interval History Renal function has improved. Hypotensive this morning. Review of Systems General Constitutional: Fatigue Genitourinary Remarks retention Objective Data Data 12/17/16 12/18/16 19:00 07:00 Intake Total 850 ml Output Total 200 ml 275 ml Balance 650 ml -275 ml Intake Oral 450 ml IV Total 400 ml Output Urine Total 200 ml 275 ml # Bowel Movements 1 Vital Signs Date Time Temp Pulse Resp B/P Pulse Ox O2 Delivery O2 Flow Rate FiO2 12/18/16 06:00 78 12/18/16 05:00 75 12/18/16 04:00 76 12/18/16 03:40 97.8 78 18 102/63 100 12/18/16 03:00 75 12/18/16 02:00 77 12/18/16 01:00 78 12/18/16 00:25 Room Air 12/18/16 00:25 97.8 89 18 101/64 100 12/18/16 00:00 77 12/17/16 23:00 75 12/17/16 22:00 80 12/17/16 21:00 79 12/17/16 20:00 84 12/17/16 20:00 97.9 95 18 105/68 100 12/17/16 19:00 75 12/17/16 16:53 Room Air 12/17/16 16:53 97.8 81 18 108/66 100 12/17/16 16:00 75 12/17/16 12:00 80 12/17/16 11:59 82/55 12/17/16 11:33 98.3 78 18 86/57 12/17/16 11:33 Room Air -: 12/18/16 0650 12/18/16 0650 Drip Comment IVF with bicarb Physical Exam General Appearance: No Acute Distress, Comfortable, Malnourished Eyes Eye Exam: Pupils Equal Throat Throat Exam: Oral Mucosa [place] & Moist Neck Neck Exam: Neck Supple Pulmonary Resp Exam: Clear Bilaterally, Breath Sounds Equal Cardiology CV Exam: Regular, Normal Sinus Rhythm Gastrointestinal/Abdomen GI Exam: Soft, Non-Tender, Distended Musculoskeletal MS Exam: Joints Intact, Good Strength Integumentary Skin Exam: Clear, Warm, Dry, Intact Extremeties Extremities Exam: Pedal Pulses Palpable, Moderate Edema Neurologic Neuro Exam: Alert, Awake, Oriented, Speech Clear, Moving All Extremities Assessment/Plan Discussed Condition With: Patient, Spouse Problem List: (1) Acute kidney injury Plan: due to renal hypoperfusion, pre-renal azotemia. Later also was noted to have urinary retention. Garcia placed. Renal function has improved. Avoid nephrotoxic agents. Since his BP is low, and recently had developed hyperkalemia, avoid Spironolactone. Taper off fluids. (2) Hyperkalemia Plan: corrected, Likely due to Spironolactone use and renal insufficiency. monitor for recurrence, Spironolactone was restarted (3) Hyponatremia Plan: Improved, likely due to non osmotic release of ADH. (4) Stage IV adenocarcinoma of pancreas Plan: has been on chemotherapy. Oncology/hematology has evaluated, may defer next chemo dose palliative care has also evaluated, he is a DNR (5) Malignant ascites Plan: s/p 5 liters removed via paracentesis 12/06, (6) Thrombocytopenia Plan: drug related (chemo agent) should be self limiting transfuse if needed, monitor for bleeding Plan His prognosis is poor. Mp Navarro MD Dec 18, 2016 08:59
[2016-12-18] MEDS: ALBUMIN HUMAN 25% 12.5 GM/50 ML BAGP IV SCH ×2 (09:00→21:21)
[2016-12-18] MEDS: SODIUM CHLORIDE 0.9% FLUSH 5 ML FLUSH FLUSH SCH ×2 (09:00→21:21)
--- NOTE | 2016-12-18 09:03 | PD.ONC.PN ---
Subjective Subjective Remarks Mr. Hooker denies acute complaints, his BP has been running low, with systolic pressure as low as 80mmHg. PLT count this AM was 11K, he is about to start a PLT transfusion. No overt bleeding. He denies pain. Objective Data Date Time Temp Pulse Resp B/P Pulse Ox O2 Delivery O2 Flow Rate FiO2 12/18/16 06:00 78 12/18/16 05:00 75 12/18/16 04:00 76 12/18/16 03:40 97.8 78 18 102/63 100 12/18/16 03:00 75 12/18/16 02:00 77 12/18/16 01:00 78 12/18/16 00:25 Room Air 12/18/16 00:25 97.8 89 18 101/64 100 12/18/16 00:00 77 12/17/16 23:00 75 12/17/16 22:00 80 12/17/16 21:00 79 12/17/16 20:00 84 12/17/16 20:00 97.9 95 18 105/68 100 12/17/16 19:00 75 12/17/16 16:53 Room Air 12/17/16 16:53 97.8 81 18 108/66 100 12/17/16 16:00 75 12/17/16 12:00 80 12/17/16 11:59 82/55 12/17/16 11:33 98.3 78 18 86/57 12/17/16 11:33 Room Air 12/18/16 12/18/16 12/18/16 07:00 15:00 23:00 Output Total 275 ml Balance -275 ml Result Diagram: 12/18/16 0650 12/18/16 0650 Laboratory Results Laboratory Tests Test 12/18/16 12/18/16 12/18/16 00:38 01:28 06:50 Blood Bank Comment Blood Type O POSITIVE White Blood Count 2.8 TH/MM3 Red Blood Count 2.43 MIL/MM3 Hemoglobin 8.9 GM/DL Hematocrit 26.5 % Mean Corpuscular Volume 108.9 FL Mean Corpuscular Hemoglobin 36.7 PG Mean Corpuscular Hemoglobin 33.7 % Concent Red Cell Distribution Width 26.3 % Platelet Count 11 TH/MM3 Mean Platelet Volume 10.1 FL Sodium Level 137 MEQ/L Potassium Level 3.6 MEQ/L Chloride Level 106 MEQ/L Carbon Dioxide Level 22.0 MEQ/L Anion Gap 9 MEQ/L Blood Urea Nitrogen 48 MG/DL Creatinine 1.85 MG/DL Estimat Glomerular Filtration 37 ML/MIN Rate Random Glucose 124 MG/DL Calcium Level 7.9 MG/DL Phosphorus Level 2.5 MG/DL Albumin 2.6 GM/DL Administered Medications Medications (Trade) Dose Ordered Sig/Kya Route PRN Reason Start Time Stop Time Status Last Admin Dose Admin IV Flush (NS Flush) 2 ml BID FLUSH 12/15/16 09:00 12/17/16 08:27 Albumin Human (Albumin 25% Inj) 25 gm Q12H IV 12/16/16 08:00 12/19/16 07:59 12/17/16 22:30 Mirtazapine (Remeron) 30 mg HS PO 12/16/16 21:00 12/17/16 22:29 Pantoprazole Sodium (Protonix) 20 mg BID PO 12/16/16 21:00 12/17/16 22:29 Trazodone HCl 50 mg 50 mg HS PO 12/16/16 21:00 12/17/16 22:29 Sodium Chloride (NS 1000 ml Inj) 1,000 ml @ 40 mls/hr Q24H IV 12/17/16 11:45 12/17/16 12:00 Objective Remarks GENERAL: Mr. Hooker is a cachectic, chronically ill-appearing man who appears to be in no distress sitting upright in bed. HEAD, EYES, EARS, NOSE, AND THROAT: His pupils are round and reactive to light and accommodation. His face is unshaven and thin. NECK: Supple. LUNGS: Clear. CARDIOVASCULAR: Exam reveals a normal rate, rhythm. ABDOMEN: Benign. EXTREMITIES: Lower extremity with edema of the hands and feet with dry skin and an chapping, no cracking Assessment/Plan Assessment 66 yr old male with a diagnosis of metastatic pancreatic ca. Had been on palliative systemic chemotherapy with the [facility] with GemOx (most recent treatment on 12/10/2016). Presents to the hospital with generalized weakness, dehydration, hypotension and chemotherapy related myelosuppression. Plan 1. Chemotherapy related myelosuppression: Supportive transfusion with PLT this AM. No overt bleeding. 2. Pancreatic ca: Management per his primary oncologist; Dr. Rashawn Art. 3. Hypotension: IV fluids and encouraged PO intake. Alize,Leif MD Dec 18, 2016 09:03
[2016-12-18] MEDS: traZODone HCL 50 MG TAB PO SCH (21:19)
[2016-12-18] MEDS: MIRTAZAPINE 15 MG TAB PO SCH (21:20)
[2016-12-19] VITALS (20 sets, daily range): BP systolic 85–101; BP diastolic 53–63; PULSE 72–88; RESP 14–18; TEMP 97.4–98.5; O2SAT 94–100
[2016-12-19 07:51] LABS: HEMATOCRIT 25.4 % (39.0-51.0); MEAN CELL VOLUME 108.7 FL (80.0-100.0); MEAN CORPUSCULAR HEMOGLOBIN 37.2 PG (27.0-34.0); MEAN CORPUSCULAR HGB CONC 34.2 % (32.0-36.0); PLATELET COUNT 28 TH/MM3 (150-450); RED BLOOD COUNT 2.34 MIL/MM3 (4.50-5.90); RED CELL DISTRIBUTION WIDTH 26.8 % (11.6-17.2); WHITE BLOOD COUNT 3.4 TH/MM3 (4.0-11.0)
[2016-12-19] MEDS: SODIUM CHLORIDE 0.9% FLUSH 5 ML FLUSH FLUSH SCH ×2 (07:55→23:20)
[2016-12-19] MEDS: PANTOPRAZOLE SOD 20 MG DELAYED RELEASE TAB PO SCH ×2 (07:55→23:19)
[2016-12-19 07:58] LABS: HEMO FLAGS AUTO DIFF
[2016-12-19 08:03] LABS: ALT (GPT) 15 U/L (12-78); ANION GAP 8 MEQ/L (5-15); AST (GOT) 21 U/L (15-37); BICARBONATE 24.1 MEQ/L (21.0-32.0); BLOOD UREA NITROGEN 42 MG/DL (7-18); CHLORIDE 107 MEQ/L (98-107); GLOMERULAR FILTRATION RATE 49 ML/MIN (>89); POTASSIUM 3.5 MEQ/L (3.5-5.1); SODIUM (NA) 139 MEQ/L (136-145)
--- NOTE | 2016-12-19 08:04 | HHI.PR ---
Subjective Remarks Follow up hypotension, thrombocytopenia. The patient has no complaints at this time. Denies pain currently. No lightheadedness, chest pain, dyspnea. Objective Vitals Vital Signs Date Time Temp Pulse Resp B/P Pulse Ox O2 Delivery O2 Flow Rate FiO2 12/19/16 06:00 80 12/19/16 05:00 73 12/19/16 04:00 98.0 81 18 94/63 100 12/19/16 04:00 75 12/19/16 03:00 76 12/19/16 02:00 72 12/19/16 01:00 80 12/19/16 00:00 77 12/19/16 00:00 98.5 82 18 89/63 100 Manual Cuff/Auscultation 12/18/16 23:00 77 12/18/16 22:00 76 12/18/16 21:00 76 12/18/16 20:00 100 Room Air 12/18/16 20:00 98.0 84 18 94/54 97 Manual Cuff/Auscultation 12/18/16 20:00 79 12/18/16 19:00 79 12/18/16 18:23 84 12/18/16 17:11 87 12/18/16 16:05 82 12/18/16 15:00 77 12/18/16 15:00 98.1 77 18 93/53 100 12/18/16 14:10 77 12/18/16 13:00 76 12/18/16 12:00 109 12/18/16 11:59 97.7 85 16 97/54 100 12/18/16 11:00 77 12/18/16 10:00 82 12/18/16 10:00 84 12/18/16 09:00 86 12/18/16 08:55 98.4 84 16 98/62 100 I/O 12/18/16 12/18/16 12/18/16 12/19/16 12/19/16 12/19/16 07:00 15:00 23:00 07:00 15:00 23:00 Intake Total 780 ml 240 ml Output Total 275 ml 275 ml 375 ml Balance -275 ml 505 ml -135 ml Intake Oral 480 ml 240 ml IV Total 300 ml Output Urine Total 275 ml 275 ml 375 ml # Bowel Movements 0 1 Result Diagram: 12/19/16 0710 12/18/16 0650 Imaging Last Impressions Cyst Biopsy Asp-Paracentesis US 12/16/16 0000 Signed Impressions: Service Date/Time: November 13:12 - CONCLUSION: Uncomplicated ultrasound guided paracentesis. Domenic Charles MD Chest X-Ray 12/15/16 0142 Signed Impressions: Service Date/Time: Thursday, December 15, 2016 02:10 - CONCLUSION: No acute disease. Gurmeet Elias MD Abdomen Ultrasound 12/15/16 0000 Signed Impressions: Service Date/Time: Thursday, December 15, 2016 19:02 - CONCLUSION: 1. Moderate amount of ascitic fluid. 2. Small cirrhotic liver. 3. Suboptimal visualization of the gallbladder and pancreas. Stu Lima MD Objective Remarks General: No acute distress. Heart: Regular rate and rhythm. No murmur. Lungs: Clear to auscultation bilaterally. No wheezes, rales, or rhonchi. Breathing is nonlabored. Abdomen: Soft, nontender, mildly distended. Extremities: Trace bilateral lower extremity edema. Psych: Alert, answers questions appropriately. Procedures 12/16/16 paracentesis Urinary Catheter: Yes Assessment to: Continue Garcia insert reason: Measure Accurate Output Vascular Central Line Catheter: No A/P Problem List: (1) Dehydration ICD Code: E86.0 Status: Acute (2) Accident due to mechanical fall without injury ICD Code: W19.XXXA Status: Acute (3) Anemia ICD Code: D64.9 Status: Acute (4) Stage IV adenocarcinoma of pancreas ICD Code: C25.9 Status: Chronic (5) Acute kidney failure ICD Code: N17.9 Status: Acute (6) Hyperkalemia ICD Code: E87.5 Status: Acute (7) Hyponatremia ICD Code: E87.1 Status: Acute Assessment and Plan 1. Stage IV pancreatic cancer: Being treated as outpatient with chemotherapy. Patient sees Dr. Art at [facility] for oncology. Appreciate palliative care recommendations. Appreciate oncology recommendations. 2. Anemia: Likely chronic secondary to cancer, chemotherapy. Monitor H&H and transfuse if necessary. 3. Hyperkalemia: Resolved. 4. Acute renal failure secondary to dehydration: Appreciate nephrology recommendations. Labs are pending today 5. Hyponatremia: Resolved. 6. Multiple falls: Physical therapy eval. 7. DVT prophylaxis: Heparin. 8. Ascites: S/P paracentesis with removal of 5000ml of fluid on 12/16/16. 9. Thrombocytopenia, neutropenia: Platelets improved following transfusion, but still low. Neutropenic precautions. Appreciate oncology recommendations. 10. Hypotension: Slightly better overnight. Monitor BP. Rusty Valdivia MD Dec 19, 2016 08:04
[2016-12-19 08:05] LABS: ALKALINE PHOSPHATASE 131 U/L (45-117); TOTAL BILIRUBIN ADULT 1.3 MG/DL (0.2-1.0)
--- NOTE | 2016-12-19 09:22 | PD.ONC.PN ---
Subjective Subjective Remarks Afebrile overnight. Patient just finished eating breakfast. He did not take his enzymes before breakfast as he does not have any. Previously his was giving them to him. He states he feels better today, but still gets dizzy when trying to get up. Objective Data Date Time Temp Pulse Resp B/P Pulse Ox O2 Delivery O2 Flow Rate FiO2 12/19/16 06:00 80 12/19/16 05:00 73 12/19/16 04:00 98.0 81 18 94/63 100 12/19/16 04:00 75 12/19/16 03:00 76 12/19/16 02:00 72 12/19/16 01:00 80 12/19/16 00:00 77 12/19/16 00:00 98.5 82 18 89/63 100 Manual Cuff/Auscultation 12/18/16 23:00 77 12/18/16 22:00 76 12/18/16 21:00 76 12/18/16 20:00 100 Room Air 12/18/16 20:00 98.0 84 18 94/54 97 Manual Cuff/Auscultation 12/18/16 20:00 79 12/18/16 19:00 79 12/18/16 18:23 84 12/18/16 17:11 87 12/18/16 16:05 82 12/18/16 15:00 77 12/18/16 15:00 98.1 77 18 93/53 100 12/18/16 14:10 77 12/18/16 13:00 76 12/18/16 12:00 109 12/18/16 11:59 97.7 85 16 97/54 100 12/18/16 11:00 77 12/18/16 10:00 82 12/18/16 10:00 84 12/19/16 12/19/16 12/19/16 07:00 15:00 23:00 Intake Total 240 ml Output Total 375 ml Balance -135 ml Result Diagram: 12/19/16 0710 12/19/16 0710 Laboratory Results Laboratory Tests Test 12/18/16 12/19/16 11:36 07:10 Platelet Count 34 TH/MM3 28 TH/MM3 White Blood Count 3.4 TH/MM3 Red Blood Count 2.34 MIL/MM3 Hemoglobin 8.7 GM/DL Hematocrit 25.4 % Mean Corpuscular Volume 108.7 FL Mean Corpuscular Hemoglobin 37.2 PG Mean Corpuscular Hemoglobin 34.2 % Concent Red Cell Distribution Width 26.8 % Mean Platelet Volume 9.1 FL Neutrophils (%) (Auto) % Lymphocytes (%) (Auto) % Monocytes (%) (Auto) % Eosinophils (%) (Auto) % Basophils (%) (Auto) % Neutrophils # (Auto) TH/MM3 Lymphocytes # (Auto) TH/MM3 Monocytes # (Auto) TH/MM3 Eosinophils # (Auto) TH/MM3 Basophils # (Auto) TH/MM3 CBC Comment AUTO DIFF Sodium Level 139 MEQ/L Potassium Level 3.5 MEQ/L Chloride Level 107 MEQ/L Carbon Dioxide Level 24.1 MEQ/L Anion Gap 8 MEQ/L Blood Urea Nitrogen 42 MG/DL Creatinine 1.45 MG/DL Estimat Glomerular Filtration 49 ML/MIN Rate Random Glucose 117 MG/DL Calcium Level 8.3 MG/DL Total Bilirubin 1.3 MG/DL Aspartate Amino Transf 21 U/L (AST/SGOT) Alanine Aminotransferase 15 U/L (ALT/SGPT) Alkaline Phosphatase 131 U/L Total Protein 5.0 GM/DL Albumin 2.7 GM/DL Administered Medications Medications (Trade) Dose Ordered Sig/Kya Route PRN Reason Start Time Stop Time Status Last Admin Dose Admin IV Flush (NS Flush) 2 ml BID FLUSH 12/15/16 09:00 12/19/16 07:55 Mirtazapine (Remeron) 30 mg HS PO 12/16/16 21:00 12/18/16 21:20 Pantoprazole Sodium (Protonix) 20 mg BID PO 12/16/16 21:00 12/19/16 07:55 Trazodone HCl (Desyrel) 50 mg HS PO 12/16/16 21:00 12/18/16 21:19 Objective Remarks GENERAL: Chronically ill appearing male, sitting up in bed. + hiccups SKIN: dry and flaky. multiple bandages on his arms. His nails are thin, spoon shaped and friable. HEAD: Normocephalic. EYES: No injection or drainage. NECK: Supple, trachea midline. CARDIOVASCULAR: Regular rate and rhythm RESPIRATORY: Breath sounds equal bilaterally. No accessory muscle use. GASTROINTESTINAL: Abdomen soft, non-tender, nondistended. EXTREMITIES: No cyanosis. trace bilateral lower extremity edema. MUSCULOSKELETAL: thin, undernourished appearance. NEUROLOGICAL: No obvious focal deficit. Awake, alert, and oriented x3. Assessment/Plan Assessment 66 yr old male w/ metastatic pancreatic ca. Had been on palliative systemic chemotherapy with the [place] [facility] with GemOx (most recent treatment on 12/10/2016). Presents to the hospital with generalized weakness, dehydration, hypotension and chemotherapy related myelosuppression. h/o RLE DVT + PE, + IVC filter Hypertension Gastroesophageal reflux Plan 1. Pancytopenia due to chemotherapy: improving. no transfusion needed. 2. Pancreatic ca: just received Gemcitabine prior to admission. Has stopped taking his PO Xeloda for chemotherapy holiday. Is a patient of Dr. Art and will follow up with Dr. Art upon discharge. 3. Hypotension: continue supportive care. monitor PO intake. 4. renal insufficiency: nephrology following, improving. Francesca Arias Dec 19, 2016 09:22 Leif Herrmann MD Dec 20, 2016 09:32
--- NOTE | 2016-12-19 09:59 | HHI.NPPN ---
Subjective Complaints: Shortness of Breath General Problems: Edema Renal Failure: Acute Interval History Patient's renal function has improved. Notes were reviewed Review of Systems General Constitutional: Fatigue Genitourinary Remarks retention Objective Data Data 12/18/16 12/19/16 19:00 07:00 Intake Total 780 ml 240 ml Output Total 275 ml 375 ml Balance 505 ml -135 ml Intake Oral 480 ml 240 ml IV Total 300 ml Output Urine Total 275 ml 375 ml # Bowel Movements 0 1 Vital Signs Date Time Temp Pulse Resp B/P Pulse Ox O2 Delivery O2 Flow Rate FiO2 12/19/16 06:00 80 12/19/16 05:00 73 12/19/16 04:00 98.0 81 18 94/63 100 12/19/16 04:00 75 12/19/16 03:00 76 12/19/16 02:00 72 12/19/16 01:00 80 12/19/16 00:00 77 12/19/16 00:00 98.5 82 18 89/63 100 Manual Cuff/Auscultation 12/18/16 23:00 77 12/18/16 22:00 76 12/18/16 21:00 76 12/18/16 20:00 100 Room Air 12/18/16 20:00 98.0 84 18 94/54 97 Manual Cuff/Auscultation 12/18/16 20:00 79 12/18/16 19:00 79 12/18/16 18:23 84 12/18/16 17:11 87 12/18/16 16:05 82 12/18/16 15:00 77 12/18/16 15:00 98.1 77 18 93/53 100 12/18/16 14:10 77 12/18/16 13:00 76 12/18/16 12:00 109 12/18/16 11:59 97.7 85 16 97/54 100 12/18/16 11:00 77 12/18/16 10:00 82 12/18/16 10:00 84 -: 12/19/16 0710 12/19/16 0710 Drip Comment IVF with bicarb Physical Exam General Appearance: No Acute Distress, Comfortable, Malnourished Eyes Eye Exam: Pupils Equal Throat Throat Exam: Oral Mucosa [place] & Moist Neck Neck Exam: Neck Supple Pulmonary Resp Exam: Clear Bilaterally, Breath Sounds Equal Cardiology CV Exam: Regular, Normal Sinus Rhythm Gastrointestinal/Abdomen GI Exam: Soft, Non-Tender, Distended Musculoskeletal MS Exam: Joints Intact, Good Strength Integumentary Skin Exam: Clear, Warm, Dry, Intact Extremeties Extremities Exam: Pedal Pulses Palpable, Moderate Edema Neurologic Neuro Exam: Alert, Awake, Oriented, Speech Clear, Moving All Extremities Assessment/Plan Discussed Condition With: Patient, Spouse Problem List: (1) Acute kidney injury Plan: due to renal hypoperfusion, pre-renal azotemia. Later also was noted to have urinary retention. Garcia placed. Renal function has improved. Avoid nephrotoxic agents. Since his BP is low, and recently had developed hyperkalemia, avoid Spironolactone. Off IVF. Consider giving him a voiding trial by removing Garcia. (2) Hyperkalemia Plan: corrected, Likely due to Spironolactone use and renal insufficiency. monitor for recurrence, Spironolactone was restarted (3) Hyponatremia Plan: Improved, likely due to non osmotic release of ADH. (4) Stage IV adenocarcinoma of pancreas Plan: has been on chemotherapy. Oncology/hematology has evaluated, may defer next chemo dose palliative care has also evaluated, he is a DNR (5) Malignant ascites Plan: s/p 5 liters removed via paracentesis 12/06, (6) Thrombocytopenia Plan: Improving. Due to Gemcitabine. Hem/Oncology following. Plan His prognosis is poor. I will see him as needed. He can be discharged from renal standpoint. Consider giving him a voiding trial before discharge. Mp Navarro MD Dec 19, 2016 09:58
[2016-12-19 10:08] LABS: BANDS 2 % (0-6); CORRECTED NUCLEATED RBC 3 /100 WBC (0-0); EOSINOPHILS 1 % (0-4); MYELOCYTES 1 % (0-0); PLATELET ESTIMATE SMEAR LOW (NORMAL); PLATELET MORPHOLOGY NORMAL (NORMAL); POLYS (SEG NEUTROPHILS) 55 % (16-70); SCAN/DIFF FINAL DIFF MANUAL; WBC DIFF SAMPLE 100
[2016-12-19] MEDS: FLUDROCORTISONE ACETATE 0.1 MG TAB PO SCH (11:50)
[2016-12-19] MEDS: LIPASE/PROTEASE/AMYLASE (12,000/38,000/60,000) CAP PO SCH ×3 (12:35→18:17)
[2016-12-19] MEDS: ONDANSETRON HCL 4 MG/2 ML VIAL IV PUSH PRN ×2 (15:04→23:21)
[2016-12-19] MEDS: MIRTAZAPINE 15 MG TAB PO SCH (23:19)
[2016-12-19] MEDS: traZODone HCL 50 MG TAB PO SCH (23:19)
[2016-12-20 04:30] VITALS: BP 92/56; PULSE 76; RESP 16; TEMP 97.2; O2SAT 99
[2016-12-20 04:36] LABS: AUTOMATED NEUTROPHIL # 2.7 TH/MM3 (1.8-7.7); BASOPHIL % 0.4 % (0.0-2.0); EOSINOPHIL % 0.8 % (0.0-4.0); LYMPH % 34.6 % (9.0-44.0); LYMPHOCYTE # 1.7 TH/MM3 (1.0-4.8); MEAN CELL VOLUME 109.1 FL (80.0-100.0); MEAN CORPUSCULAR HGB CONC 33.9 % (32.0-36.0); MONO % 10.2 % (0.0-8.0); PLATELET COUNT 35 TH/MM3 (150-450); RED BLOOD COUNT 2.48 MIL/MM3 (4.50-5.90); RED CELL DISTRIBUTION WIDTH 25.8 % (11.6-17.2); WHITE BLOOD COUNT 4.9 TH/MM3 (4.0-11.0)
[2016-12-20 04:42] LABS: HEMO FLAGS AUTO DIFF
[2016-12-20 05:00] LABS: BICARBONATE 22.4 MEQ/L (21.0-32.0); POTASSIUM 3.5 MEQ/L (3.5-5.1)
[2016-12-20 07:43] LABS: CORRECTED NUCLEATED RBC 4 /100 WBC (0-0); EOSINOPHILS 1 % (0-4); POLYS (SEG NEUTROPHILS) 61 % (16-70); WBC DIFF SAMPLE 100
[2016-12-20 07:44] LABS: PLATELET ESTIMATE SMEAR LOW (NORMAL); PLATELET MORPHOLOGY NORMAL (NORMAL); SCAN/DIFF FINAL DIFF MANUAL
[2016-12-20 08:00] VITALS: BP 83/58; PULSE 82; RESP 15; TEMP 97.3; O2SAT 100
[2016-12-20] MEDS: FLUDROCORTISONE ACETATE 0.1 MG TAB PO SCH (09:19)
[2016-12-20] MEDS: PANTOPRAZOLE SOD 20 MG DELAYED RELEASE TAB PO SCH ×2 (09:20→20:36)
[2016-12-20] MEDS: LIPASE/PROTEASE/AMYLASE (12,000/38,000/60,000) CAP PO SCH ×3 (09:20→18:51)
[2016-12-20] MEDS: SODIUM CHLORIDE 0.9% FLUSH 5 ML FLUSH FLUSH SCH ×2 (09:20→20:36)
[2016-12-20] MEDS: ONDANSETRON HCL 4 MG/2 ML VIAL IV PUSH PRN (09:21)
--- NOTE | 2016-12-20 10:25 | HHI.PR ---
Subjective Remarks Follow up hypotension. Patient denies lightheadedness, dizziness, chest pain, dyspnea. Objective Vitals Vital Signs Date Time Temp Pulse Resp B/P Pulse Ox O2 Delivery O2 Flow Rate FiO2 12/20/16 08:00 97.3 82 15 83/58 100 12/20/16 04:30 97.2 76 16 92/56 99 12/19/16 21:34 97.4 81 15 90/53 94 12/19/16 18:02 76 12/19/16 18:00 76 12/19/16 17:08 85 12/19/16 16:48 98.5 83 16 90/57 100 12/19/16 16:48 88 12/19/16 15:00 86 12/19/16 14:00 78 12/19/16 13:02 88 12/19/16 12:00 74 12/19/16 11:00 98.1 80 16 101/62 100 12/19/16 11:00 80 I/O 12/19/16 12/19/16 12/19/16 12/20/16 12/20/16 12/20/16 07:00 15:00 23:00 07:00 15:00 23:00 Intake Total 240 ml 600 ml 240 ml Output Total 375 ml 325 ml 200 ml Balance -135 ml 275 ml 40 ml Intake Oral 240 ml 600 ml 240 ml Output Urine Total 375 ml 325 ml 200 ml # Bowel Movements 1 0 0 Result Diagram: 12/20/16 0424 12/20/16 0424 Imaging Last Impressions Cyst Biopsy Asp-Paracentesis US 12/16/16 0000 Signed Impressions: Service Date/Time: November 13:12 - CONCLUSION: Uncomplicated ultrasound guided paracentesis. Domenic Charles MD Chest X-Ray 12/15/16 0142 Signed Impressions: Service Date/Time: Thursday, December 15, 2016 02:10 - CONCLUSION: No acute disease. Gurmeet Elias MD Abdomen Ultrasound 12/15/16 0000 Signed Impressions: Service Date/Time: Thursday, December 15, 2016 19:02 - CONCLUSION: 1. Moderate amount of ascitic fluid. 2. Small cirrhotic liver. 3. Suboptimal visualization of the gallbladder and pancreas. Stu Lima MD Objective Remarks General: No acute distress. Heart: Regular rate and rhythm. No murmur. Lungs: Clear to auscultation bilaterally. No wheezes, rales, or rhonchi. Breathing is nonlabored. Abdomen: Soft, nontender, mildly distended. Extremities: Trace bilateral lower extremity edema. Psych: Alert, answers questions appropriately. Procedures 12/16/16 paracentesis Urinary Catheter: Yes Assessment to: Continue Garcia insert reason: Measure Accurate Output Vascular Central Line Catheter: No A/P Problem List: (1) Dehydration ICD Code: E86.0 Status: Acute (2) Accident due to mechanical fall without injury ICD Code: W19.XXXA Status: Acute (3) Anemia ICD Code: D64.9 Status: Acute (4) Stage IV adenocarcinoma of pancreas ICD Code: C25.9 Status: Chronic (5) Acute kidney failure ICD Code: N17.9 Status: Acute (6) Hyperkalemia ICD Code: E87.5 Status: Acute (7) Hyponatremia ICD Code: E87.1 Status: Acute (8) Hypotension ICD Code: I95.9 Status: Acute (9) Thrombocytopenia ICD Code: D69.6 Status: Acute Assessment and Plan 1. Stage IV pancreatic cancer: Being treated as outpatient with chemotherapy. Patient sees Dr. Art at [facility] for oncology. Appreciate palliative care and oncology recommendations. 2. Anemia: Likely chronic secondary to cancer, chemotherapy. Monitor H&H and transfuse if necessary. 3. Hyperkalemia: Resolved. 4. Acute renal failure secondary to dehydration: Appreciate nephrology recommendations. Improving. 5. Hyponatremia: Resolved. 6. Multiple falls: Physical therapy eval. 7. DVT prophylaxis: Heparin. 8. Ascites: S/P paracentesis with removal of 5000ml of fluid on 12/16/16. 9. Thrombocytopenia, neutropenia: Improved. Appreciate oncology recommendations. Neutropenic precautions discontinued. 10. Hypotension: BP still low. Started on Florinef by oncology. Will give 250ml bolus now. Discussed with oncology. Rusty Valdivia MD Dec 20, 2016 10:25
--- NOTE | 2016-12-20 10:44 | PD.ONC.PN ---
Subjective Subjective Remarks Afebrile overnight. Patient's BP remains persistent low. He denies symptoms of dizziness or light-headedness. Tolerated breakfast. Objective Data Date Time Temp Pulse Resp B/P Pulse Ox O2 Delivery O2 Flow Rate FiO2 12/20/16 08:00 97.3 82 15 83/58 100 12/20/16 04:30 97.2 76 16 92/56 99 12/19/16 21:34 97.4 81 15 90/53 94 12/19/16 18:02 76 12/19/16 18:00 76 12/19/16 17:08 85 12/19/16 16:48 98.5 83 16 90/57 100 12/19/16 16:48 88 12/19/16 15:00 86 12/19/16 14:00 78 12/19/16 13:02 88 12/19/16 12:00 74 12/19/16 11:00 98.1 80 16 101/62 100 12/19/16 11:00 80 Result Diagram: 12/20/16 0424 12/20/16 0424 Laboratory Results Laboratory Tests Test 12/20/16 04:24 White Blood Count 4.9 TH/MM3 Red Blood Count 2.48 MIL/MM3 Hemoglobin 9.2 GM/DL Hematocrit 27.0 % Mean Corpuscular Volume 109.1 FL Mean Corpuscular Hemoglobin 37.0 PG Mean Corpuscular Hemoglobin 33.9 % Concent Red Cell Distribution Width 25.8 % Platelet Count 35 TH/MM3 Mean Platelet Volume 9.5 FL Neutrophils (%) (Auto) 54.0 % Lymphocytes (%) (Auto) 34.6 % Monocytes (%) (Auto) 10.2 % Eosinophils (%) (Auto) 0.8 % Basophils (%) (Auto) 0.4 % Neutrophils # (Auto) 2.7 TH/MM3 Lymphocytes # (Auto) 1.7 TH/MM3 Monocytes # (Auto) 0.5 TH/MM3 Eosinophils # (Auto) 0.0 TH/MM3 Basophils # (Auto) 0.0 TH/MM3 CBC Comment AUTO DIFF Differential Total Cells 100 Counted Neutrophils % (Manual) 61 % Lymphocytes % 33 % Monocytes % 5 % Eosinophils % 1 % Neutrophils # (Manual) 3.0 TH/MM3 Nucleated Red Blood Cells 4 /100 WBC Differential Comment FINAL DIFF MANUAL Platelet Estimate LOW Platelet Morphology Comment NORMAL Sodium Level 138 MEQ/L Potassium Level 3.5 MEQ/L Chloride Level 108 MEQ/L Carbon Dioxide Level 22.4 MEQ/L Anion Gap 8 MEQ/L Blood Urea Nitrogen 36 MG/DL Creatinine 1.29 MG/DL Estimat Glomerular Filtration 56 ML/MIN Rate Random Glucose 113 MG/DL Calcium Level 8.0 MG/DL Administered Medications Medications (Trade) Dose Ordered Sig/Kya Route PRN Reason Start Time Stop Time Status Last Admin Dose Admin IV Flush (NS Flush) 2 ml BID FLUSH 12/15/16 09:00 12/20/16 09:20 Mirtazapine (Remeron) 30 mg HS PO 12/16/16 21:00 12/19/16 23:19 Pantoprazole Sodium (Protonix) 20 mg BID PO 12/16/16 21:00 12/20/16 09:20 Trazodone HCl (Desyrel) 50 mg HS PO 12/16/16 21:00 12/19/16 23:19 Ondansetron HCl (Zofran Inj) 4 mg Q8HR PRN IV PUSH NAUSEA OR VOMITING 12/16/16 16:15 12/20/16 09:21 Fludrocortisone Acetate (Florinef) 0.1 mg DAILY PO 12/19/16 10:45 12/20/16 09:19 Amylase/Lipase/ Protease (Creon 12-38-60) 2 cap TIDPC PO 12/19/16 13:00 12/20/16 09:20 Objective Remarks GENERAL: Middle aged male, sitting up in bed, talking with nurse. SKIN: dry and flaky. HEAD: Normocephalic. EYES: No injection or drainage. NECK: Supple, trachea midline. CARDIOVASCULAR: Regular rate and rhythm RESPIRATORY: Breath sounds equal bilaterally. No accessory muscle use. GASTROINTESTINAL: Abdomen soft, non-tender, nondistended. EXTREMITIES: No cyanosis. trace edema. NEUROLOGICAL: awake and alert, normal speech. moving all extremities. Assessment/Plan Assessment 66 y/o male w/ metastatic pancreatic ca. s/p palliative systemic chemotherapy with the [place] [facility]ist with GemOx (most recent treatment on 12/10/2016). Admitted with generalized weakness, dehydration, hypotension and chemotherapy related myelosuppression. h/o RLE DVT + PE, + IVC filter Hypertension Gastroesophageal reflux Plan 1. Pancytopenia due to chemotherapy: stable. d/c neutropenic precautions today 2. Pancreatic ca: continue to hold Xeloda. Plan for f/u with Dr. Art upon d/c 3. Hypotension: started on Florinef for question of adrenal insufficiency 4. renal insufficiency: stable. Attending Statement The exam, history, and the medical decision-making described in the above note were completed with the assistance of the mid-level provider. I reviewed and agree with the findings presented. I attest that I had a [id number] encounter with the patient on the same day, and personally performed and documented my assessment and findings in the medical record. Pt seen and examined. Explained his BP is low at baseline. Walked w/ PT today, feels weak being in bed several days. Encourage to continue work w/ PT for deconditioning. support hose. Still thrombocytopenic but no bleeding. Neutropenia resolved. KIRK parra/ Dr. Art. Francesca Arias Dec 20, 2016 10:44 Suzie Kaur MD Dec 20, 2016 19:31
[2016-12-20] MEDS ORDERED: SODIUM CHLOR 0.9% 250 ML INJ 250 ML IV ONE (11:00)
[2016-12-20 12:00] VITALS: BP 78/49; PULSE 78; RESP 14; TEMP 97.9; O2SAT 100
[2016-12-20 13:00] VITALS: BP 96/59
[2016-12-20 16:00] VITALS: BP 98/57; PULSE 81; RESP 15; TEMP 95.9; O2SAT 100
[2016-12-20 20:10] VITALS: BP 99/63; PULSE 84; RESP 17; TEMP 98.4; O2SAT 99
[2016-12-20] MEDS: MIRTAZAPINE 15 MG TAB PO SCH (20:36)
[2016-12-20] MEDS: traZODone HCL 50 MG TAB PO SCH (20:36)
[2016-12-21] VITALS (8 sets, daily range): BP systolic 90–106; BP diastolic 52–64; PULSE 80–89; RESP 18; TEMP 97.8–99.3; O2SAT 98–100
[2016-12-21] MEDS ORDERED: MAGNESIUM SULFATE 1 GM PREMIX 100 ML IV ONE (05:45)
[2016-12-21] MEDS ORDERED: POTASSIUM CHLORIDE 20 MEQ CONTROLLED RELEASE TAB PO ONE (05:45)
[2016-12-21 05:54] LABS: AUTOMATED NEUTROPHIL # 4.6 TH/MM3 (1.8-7.7); BASOPHIL % 0.1 % (0.0-2.0); EOSINOPHIL % 0.4 % (0.0-4.0); HEMATOCRIT 29.1 % (39.0-51.0); LYMPH % 20.6 % (9.0-44.0); LYMPHOCYTE # 1.4 TH/MM3 (1.0-4.8); MEAN CELL VOLUME 108.8 FL (80.0-100.0); MEAN CORPUSCULAR HEMOGLOBIN 37.5 PG (27.0-34.0); MEAN CORPUSCULAR HGB CONC 34.4 % (32.0-36.0); MONO % 10.3 % (0.0-8.0); NEUT % 68.6 % (16.0-70.0); PLATELET COUNT 40 TH/MM3 (150-450); RED BLOOD COUNT 2.68 MIL/MM3 (4.50-5.90); RED CELL DISTRIBUTION WIDTH 26.7 % (11.6-17.2); WHITE BLOOD COUNT 6.7 TH/MM3 (4.0-11.0)
[2016-12-21 06:00] LABS: INTERNATIONAL NORMALIZED RATIO 1.6 RATIO
[2016-12-21 06:25] LABS: BICARBONATE 22.8 MEQ/L (21.0-32.0); MAGNESIUM 1.8 MG/DL (1.5-2.5); POTASSIUM 3.9 MEQ/L (3.5-5.1)
[2016-12-21 06:36] LABS: HEMO FLAGS AUTO DIFF
[2016-12-21] MEDS: POTASSIUM CHLOR 20 MEQ PREMIX 100 ML IV SCH ×2 (07:45→09:23)
[2016-12-21 07:58] LABS: BANDS 2 % (0-6); CORRECTED NUCLEATED RBC 6 /100 WBC (0-0); EOSINOPHILS 1 % (0-4); NEUTROPHIL # MANUAL DIFF 4.9 TH/MM3 (1.8-7.7); POLYS (SEG NEUTROPHILS) 71 % (16-70); WBC DIFF SAMPLE 100
[2016-12-21 07:59] LABS: PLATELET ESTIMATE SMEAR LOW (NORMAL); PLATELET MORPHOLOGY NORMAL (NORMAL); SCAN/DIFF FINAL DIFF MANUAL
[2016-12-21] MEDS: SODIUM CHLORIDE 0.9% FLUSH 5 ML FLUSH FLUSH SCH ×2 (09:00→20:21)
--- NOTE | 2016-12-21 09:08 | HHI.PR ---
Subjective Remarks Follow-up for thrombocytopenia, hepatic cancer Overnight, patient had several runs of V. tach, had 4 second runs of V. tach, asymptomatic, patient denies any chest pain, shortness of breath, palpitations. Patient has mild lightheadedness when standing up. No significant pain. Had mild nausea a few days ago but eating well. Denies any history of heart problems. Objective Vitals Vital Signs Date Time Temp Pulse Resp B/P Pulse Ox O2 Delivery O2 Flow Rate FiO2 12/21/16 04:00 99.3 88 18 95/61 100 12/21/16 00:20 98.2 82 18 92/60 98 12/20/16 20:10 98.4 84 17 99/63 99 12/20/16 16:00 95.9 81 15 98/57 100 12/20/16 13:00 96/59 12/20/16 12:00 97.9 78 14 78/49 100 I/O 12/20/16 12/20/16 12/20/16 12/21/16 12/21/16 12/21/16 07:00 15:00 23:00 07:00 15:00 23:00 Intake Total 240 ml 480 ml 240 ml 240 ml Output Total 200 ml 175 ml 175 ml 150 ml Balance 40 ml 305 ml 65 ml 90 ml Intake Oral 240 ml 480 ml 240 ml 240 ml Output Urine Total 200 ml 175 ml 175 ml 150 ml # Bowel Movements 0 0 0 Result Diagram: 12/21/16 0540 12/21/16 0540 Objective Remarks General: No acute distress. Pale Conjunctiva. Heart: Regular rate and rhythm. No murmur. Lungs: Clear to auscultation bilaterally. No wheezes, rales, or rhonchi. Breathing is nonlabored. Abdomen: Soft, nontender, mildly distended. Good bowel sounds. Extremities: 1+ lower extremity edema Awake, alert, oriented 3, no focal deficits, moves extremities. Psych: Alert, answers questions appropriately. Procedures 12/16/16 paracentesis A/P Problem List: (1) Dehydration ICD Code: E86.0 Status: Acute (2) Accident due to mechanical fall without injury ICD Code: W19.XXXA Status: Acute (3) Anemia ICD Code: D64.9 Status: Acute (4) Stage IV adenocarcinoma of pancreas ICD Code: C25.9 Status: Chronic (5) Acute kidney failure ICD Code: N17.9 Status: Acute (6) Hyperkalemia ICD Code: E87.5 Status: Acute (7) Hyponatremia ICD Code: E87.1 Status: Acute (8) Hypotension ICD Code: I95.9 Status: Acute (9) Thrombocytopenia ICD Code: D69.6 Status: Acute Assessment and Plan Stage IV pancreatic cancer: Being treated as outpatient with chemotherapy. Patient sees Dr. Art at [facility] for oncology. Appreciate palliative care and oncology recommendations. Nonsustained ventricular tachycardia-check EKG, replace magnesium and percussion as needed, no history of coronary artery disease, check troponin. Consult cardiology, cannot start on beta mk because of hypotension. Anemia: Likely chronic secondary to cancer, chemotherapy. Monitor H&H and transfuse if necessary. Hyperkalemia: Resolved. Acute renal failure secondary to dehydration: Appreciate nephrology recommendations. Improving. Almost resolved. Hyponatremia: Resolved. Multiple falls: Physical therapy eval. DVT prophylaxis: Heparin. Ascites: S/P paracentesis with removal of 5000ml of fluid on 12/16/16. Thrombocytopenia, neutropenia: Improved. Appreciate oncology recommendations. Neutropenic precautions discontinued. Hypotension: BP still low. Continue Florinef, continue IVF, status post bolus. DVT prophylaxis: Pharmacological prophylaxis relatively contraindicated because of thrombus cytopenia and anemia. SCDs. Jovanny Garcia MD Dec 21, 2016 09:08
[2016-12-21] MEDS: PANTOPRAZOLE SOD 20 MG DELAYED RELEASE TAB PO SCH ×2 (09:21→20:20)
[2016-12-21] MEDS: FLUDROCORTISONE ACETATE 0.1 MG TAB PO SCH (09:21)
[2016-12-21] MEDS: LIPASE/PROTEASE/AMYLASE (12,000/38,000/60,000) CAP PO SCH ×3 (09:21→18:30)
[2016-12-21] MEDS: SODIUM CHLOR 0.9% 1000 ML INJ 1,000 ML IV SCH ×2 (09:22→17:45)
--- NOTE | 2016-12-21 12:10 | MB ---
cc: ANNA LEOS MD DATE OF CONSULTATION: 12/21/2016 REASON FOR CONSULTATION V tach. HISTORY OF PRESENT ILLNESS Mr. Hooker is an unfortunate 66-year-old man with stage IV pancreatic cancer that is undergoing chemotherapy at [facility]. He presented to [place] with generalized weakness and dehydration. Yesterday the patient had multiple episodes of an SVT and cardiology was subsequently consulted. The patient denies any prior history of CAD. Likewise he has not had any significant chest pain or cardiac symptoms. The patient is currently a DNR and does not wish any aggressive measures. PAST MEDICAL HISTORY 1. Stage IV pancreatic cancer. 2. Hypertension prior to the cancer treatment. 3. Hyperlipidemia. 4. DVT. 5. Pulmonary embolism with IVC filter. 6. Dependent edema. 7. GERD. 8. Frequent falls. FAMILY HISTORY Positive for mother with valvular heart disease. SOCIAL HISTORY The patient is a former smoker and quit drinking alcohol in February 2016. He is . REVIEW OF SYSTEMS Except for the weakness and diarrhea all 12 systems are negative. PHYSICAL EXAMINATION VITAL SIGNS: 98.4, 89, 18, 90/53. GENERAL: In general he is a thin man who is ill-appearing. LUNGS: Clear to auscultation. CARDIOVASCULAR: Normal S1 and S2. I do not appreciate any rubs or gallops. ABDOMEN: The abdomen is soft and mildly distended. EXTREMITIES: The extremities have 1+ edema. LABORATORY Lab values are significant for a hemoglobin of 10, creatinine 1.26, albumin 2.7. TELEMETRY Telemetry shows multiple runs of NSVT. IMPRESSIONS/RECOMMENDATIONS 1. This gentleman had several prior cardiac risk factors including hypertension, hyperlipidemia and smoking. Thus it is entirely possible that he does have coronary disease. He, however, is not a revascularization candidate. Unfortunately he is not stable enough for beta-mk therapy either. Thus at this point I have simply requested an echocardiogram for EF assessment. If his blood pressure is later able to tolerate it the primary team can consider adding beta mk. 2. Stage IV pancreatic cancer: Per hematology/oncology. 3. Weakness: Per the primary team. I will be available on a p.r.n. basis and would be happy to see him should any further cardiac questions arise. Anna Leos M.D. BAB/BT /11:37 AM /11:52 AM
--- NOTE | 2016-12-21 13:42 | EKG ---
Date Performed: 12/21/2016 Time Performed: 10:28:11 PTAGE: 66 years EKG: Sinus rhythm INFERIOR MYOCARDIAL INFARCTION , PROBABLY OLD ABNORMAL ECG Compared to prior tracing no significant change PREVIOUS TRACING : 12/15/2016 01.51 DOCTOR: Liliana Marquez Interpretating Date/Time 12/21/2016 13:41:17
--- NOTE | 2016-12-21 15:16 | EC ---
Study Study Date:12/21/2016 STUDY CONCLUSIONS SUMMARY - Left ventricle: The cavity size was normal. Wall thickness was normal. Systolic function was moderately reduced. The estimated ejection fraction was in the range of 35% to 40%. - Mitral valve: Mildly calcified annulus. - Pericardium, extracardiac: There was a left pleural effusion. If LV function is below 40, please consider prescribing an ACEI or ARB or document rationale for non-use. PROCEDURE DATA STUDY STATUS: Elective. Procedure: Transthoracic echocardiography. Image quality was fair. Scanning was performed from the parasternal, apical, and subcostal acoustic windows. Study completion: The patient tolerated the procedure well. Transthoracic echocardiography. M-mode, complete 2D, complete spectral Doppler, and color Doppler. Patient status: Inpatient. CARDIAC ANATOMY LEFT VENTRICLE: The cavity size was normal. Wall thickness was normal. Systolic function was moderately reduced. The estimated ejection fraction was in the range of 35% to 40%. Distal anterior hypokinesis. AORTIC VALVE: Trileaflet; normal thickness, mildly calcified leaflets. Doppler: Transvalvular velocity was within the normal range. There was no stenosis. No regurgitation. AORTA: Aortic root: The aortic root was normal in size. MITRAL VALVE: Mildly calcified annulus. Doppler: Transvalvular velocity was within the normal range. There was no evidence for stenosis. No regurgitation. Mean gradient: 1mm Hg (D). LEFT ATRIUM: The atrium was normal in size. RIGHT VENTRICLE: The cavity size was normal. Wall thickness was normal. PULMONIC VALVE: Doppler: Transvalvular velocity was within the normal range. There was no evidence for stenosis. No regurgitation. TRICUSPID VALVE: Structurally normal valve. Doppler: Transvalvular velocity was within the normal range. No regurgitation. PULMONARY ARTERY: The main pulmonary artery was normal-sized. Systolic pressure was within the normal range. RIGHT ATRIUM: The atrium was normal in size. PERICARDIUM: There was no pericardial effusion. SYSTEMIC VEINS: Inferior vena cava: The vessel was normal in size. Pleura: There was a left pleural effusion. BASIC MEASUREMENTS ADULT Normal Left ventricle LV internal dimension, ED, chordal level, *42.3 mm 43-52 PLAX LV internal dimension, ES, chordal level, 36.1 mm 23-38 PLAX Fractional shortening, chordal level, PLAX *15 % >29 LV posterior wall thickness, ED 8.01 mm IVS/LVPW ratio, ED 1.08 <1.3 Ventricular septum Septal thickness, ED 8.62 mm Aortic valve Leaflet separation 17 mm 15-26 Left atrium Anterior-posterior dimension 34 mm Right ventricle RV internal dimension, ED, PLAX 19.4 mm 19-38 BASIC MEASUREMENTS ADULT Normal Aortic valve Leaflet separation 17 mm 15-26 DOPPLER MEASUREMENTS ADULT Normal Main pulmonary artery Pressure, S 29 mm Hg =30 Aortic valve VTI, S 27.3 cm Mitral valve Peak E-wave velocity 49.4 cm/s Peak A-wave velocity 95.3 cm/s Mean velocity, D 53.2 cm/s Mean gradient, D 1 mm Hg Peak E/A ratio 0.5 Tricuspid valve Regurgitant peak velocity 243 cm/s Peak RV-RA gradient, S 24 mm Hg Maximal regurgitant velocity 243 cm/s Systemic veins Estimated CVP 5 mm Hg Right ventricle RV pressure, S 29 mm Hg <30 LEGEND: Mean values are shown as u=mean value. Asterisk (*) hillman values outside specified normal range. Prepared and signed by Shanelle Powers [id number]
[2016-12-21] MEDS: MIRTAZAPINE 15 MG TAB PO SCH (20:20)
[2016-12-21] MEDS: traZODone HCL 50 MG TAB PO SCH (20:20)
[2016-12-21] MEDS: LORazepam 1 MG TAB PO PRN (23:36)
[2016-12-22] VITALS (7 sets, daily range): BP systolic 94–118; BP diastolic 54–70; PULSE 74–89; RESP 16–20; TEMP 96.5–98.4; O2SAT 98–100
[2016-12-22] MEDS: SODIUM CHLOR 0.9% 1000 ML INJ 1,000 ML IV SCH ×3 (03:45→23:45)
[2016-12-22] MEDS: LIPASE/PROTEASE/AMYLASE (12,000/38,000/60,000) CAP PO SCH ×3 (08:35→18:52)
[2016-12-22] MEDS: FLUDROCORTISONE ACETATE 0.1 MG TAB PO SCH (08:36)
[2016-12-22] MEDS: PANTOPRAZOLE SOD 20 MG DELAYED RELEASE TAB PO SCH ×2 (08:36→20:15)
[2016-12-22] MEDS: SODIUM CHLORIDE 0.9% FLUSH 5 ML FLUSH FLUSH SCH ×2 (08:40→20:20)
--- NOTE | 2016-12-22 10:17 | PD.ONC.PN ---
Subjective Subjective Remarks Afebrile overnight. Patient is laying in bed watching TV on approach in no distress. He denies pain. He is asking about his echocardiogram results and when he may be discharged. Objective Data Date Time Temp Pulse Resp B/P Pulse Ox O2 Delivery O2 Flow Rate FiO2 12/22/16 07:55 97.2 74 20 94/54 100 12/22/16 04:00 96.5 77 16 101/64 99 12/22/16 00:00 97.6 80 16 103/59 98 12/21/16 22:29 81 12/21/16 20:00 97.8 85 18 97/59 99 12/21/16 16:00 98.4 84 18 95/52 100 12/21/16 12:00 98.1 87 18 106/64 100 Result Diagram: 12/21/16 0540 12/21/16 0540 Imaging Studies Last Impressions Cyst Biopsy Asp-Paracentesis US 12/16/16 0000 Signed Impressions: Service Date/Time: November 13:12 - CONCLUSION: Uncomplicated ultrasound guided paracentesis. Domenic Charles MD Chest X-Ray 12/15/16 0142 Signed Impressions: Service Date/Time: Thursday, December 15, 2016 02:10 - CONCLUSION: No acute disease. Gurmeet Elias MD Abdomen Ultrasound 12/15/16 0000 Signed Impressions: Service Date/Time: Thursday, December 15, 2016 19:02 - CONCLUSION: 1. Moderate amount of ascitic fluid. 2. Small cirrhotic liver. 3. Suboptimal visualization of the gallbladder and pancreas. Stu Lima MD Administered Medications Medications (Trade) Dose Ordered Sig/Kya Route PRN Reason Start Time Stop Time Status Last Admin Dose Admin IV Flush (NS Flush) 2 ml BID FLUSH 12/15/16 09:00 12/21/16 20:21 Lorazepam (Ativan) 1 mg DAILY PRN PO ANXIETY AND/OR AGITATION 12/16/16 16:15 12/21/16 23:36 Mirtazapine (Remeron) 30 mg HS PO 12/16/16 21:00 12/21/16 20:20 Pantoprazole Sodium (Protonix) 20 mg BID PO 12/16/16 21:00 12/22/16 08:36 Trazodone HCl (Desyrel) 50 mg HS PO 12/16/16 21:00 12/21/16 20:20 Ondansetron HCl (Zofran Inj) 4 mg Q8HR PRN IV PUSH NAUSEA OR VOMITING 12/16/16 16:15 12/20/16 09:21 Fludrocortisone Acetate (Florinef) 0.1 mg DAILY PO 12/19/16 10:45 12/22/16 08:36 Amylase/Lipase/ Protease 2 cap 2 cap TIDPC PO 12/19/16 13:00 12/22/16 08:35 Sodium Chloride (NS 1000 ml Inj) 1,000 ml @ 100 mls/hr Q10H IV 12/21/16 07:45 12/21/16 09:22 Objective Remarks GENERAL: Chronically ill appearing male lying in bed in no distress. SKIN: Xerosis. HEAD: Normocephalic. EYES: No injection or drainage. NECK: Supple, trachea midline. CARDIOVASCULAR: +S1/S2. No murmur appreciated. RESPIRATORY: Lungs clear throughout. Breathing unlabored. GASTROINTESTINAL: Abdomen soft, non-tender, nondistended. EXTREMITIES: 2+ BLE edema. MUSCULOSKELETAL: Generalized weakness. NEUROLOGICAL: No obvious focal deficit. Awake, alert, and oriented x3. Assessment/Plan Assessment 66 y/o male w/ metastatic pancreatic ca. s/p palliative systemic chemotherapy with the [facility] with [facility] (most recent treatment on 12/10/2016). Admitted with generalized weakness, dehydration, hypotension and chemotherapy related myelosuppression. h/o RLE DVT + PE, + IVC filter Hypertension Gastroesophageal reflux Plan 1. Pt remains pancytopenic. No neutropenia. Will recheck CBC in am. 2. Continue holding Xeloda. Pt will followup with Dr. Art on D/C for followup of his stage IV pancreatic cancer. 3. Hypotension stable. Encourage good nutrition. 4. Labs in am. Attending Statement Discussed w/ HUA Peacock. DC as planned w/ follow Dr. Art. Tequila Peacock Dec 22, 2016 10:17 Suzie Kaur MD Dec 22, 2016 19:13
--- NOTE | 2016-12-22 10:29 | HHI.PR ---
Subjective Remarks f/u vtacy, and pancreatic cancer Patient denies any chest pain, shortness of breath, fever, nausea, vomiting or palpitations. Seen by cardiology, no bleeding. Objective Vitals Vital Signs Date Time Temp Pulse Resp B/P Pulse Ox O2 Delivery O2 Flow Rate FiO2 12/22/16 07:55 97.2 74 20 94/54 100 12/22/16 04:00 96.5 77 16 101/64 99 12/22/16 00:00 97.6 80 16 103/59 98 12/21/16 22:29 81 12/21/16 20:00 97.8 85 18 97/59 99 12/21/16 16:00 98.4 84 18 95/52 100 12/21/16 12:00 98.1 87 18 106/64 100 I/O 12/21/16 12/21/16 12/21/16 12/22/16 12/22/16 12/22/16 06:59 14:59 22:59 06:59 14:59 22:59 Intake Total 240 ml 815 ml 720 ml 100 ml Output Total 150 ml 250 ml 150 ml Balance 90 ml 815 ml 470 ml -50 ml Intake Oral 240 ml 720 ml 100 ml IV Total 815 ml Output Urine Total 150 ml 250 ml 150 ml # Bowel Movements 0 0 Result Diagram: 12/21/1640 12/21/16 0540 Objective Remarks General: No acute distress. Pale Conjunctiva. Heart: Regular rate and rhythm. No murmur. Lungs: Clear to auscultation bilaterally. No wheezes, rales, or rhonchi. Breathing is nonlabored. Abdomen: Soft, nontender, mildly distended. Good bowel sounds. Extremities: 1+ lower extremity edema Awake, alert, oriented 3, no focal deficits, moves extremities. Psych: Alert, answers questions appropriately. Procedures 12/16/16 paracentesis A/P Problem List: (1) Dehydration ICD Code: E86.0 Status: Acute (2) Accident due to mechanical fall without injury ICD Code: W19.XXXA Status: Acute (3) Anemia ICD Code: D64.9 Status: Acute (4) Stage IV adenocarcinoma of pancreas ICD Code: C25.9 Status: Chronic (5) Acute kidney failure ICD Code: N17.9 Status: Acute (6) Hyperkalemia ICD Code: E87.5 Status: Acute (7) Hyponatremia ICD Code: E87.1 Status: Acute (8) Hypotension ICD Code: I95.9 Status: Acute (9) Thrombocytopenia ICD Code: D69.6 Status: Acute Assessment and Plan Stage IV pancreatic cancer: Being treated as outpatient with chemotherapy. Patient sees Dr. Art at [facility] for oncology. Appreciate palliative care and oncology recommendations. Discussed with oncology mid level today. Nonsustained ventricular tachycardia- EKG reviewed, possibly old inferior wall [place]. Cardiology consulted, per cardiology, not a good candidate for any workup. Add beta mk if blood pressure is more stable. Replace magnesium and potassium as needed. Troponin mildly elevated at 0.69, probably has coronary artery disease. Echocardiogram requested, ejection fraction is 35-40%, Cardiology has signed off. Should be on lisinopril however had acute renal failure and hypotension Systolic congestive heart failure, not in exacerbation-echocardiogram as above, should begin lisinopril however with relative contraindications as above. Start lisinopril and metoprolol if blood pressure is better. Hypertension-likely secondary to dehydration, continue IVF. Anemia: Likely chronic secondary to cancer, chemotherapy. Monitor H&H and transfuse if necessary. Zander cytopenia-stable, recheck tomorrow. Hyperkalemia: Resolved. Acute renal failure secondary to dehydration: Appreciate nephrology recommendations. Improving. Almost resolved. Hyponatremia: Resolved. Multiple falls: Physical therapy eval. Ascites: S/P paracentesis with removal of 5000ml of fluid on 12/16/16. Thrombocytopenia, neutropenia: Improved. Appreciate oncology recommendations. Neutropenic precautions discontinued. Hypotension: BP still low. Continue Florinef, continue IVF, status post bolus. DVT prophylaxis: Pharmacological prophylaxis relatively contraindicated because of thrombus cytopenia and anemia. SCDs. Discharge Planning Rehabilitation recommendation however patient wants to go home. Possible discharge and home health care tomorrow Jovanny Garcia MD Dec 22, 2016 10:29
[2016-12-22] MEDS: MEGESTROL ACETATE SUSP 400 MG/10 ML CUP PO SCH (13:30)
[2016-12-22] MEDS: CALCIUM CARBONATE 500 MG CHEWABLE TAB PO PRN ×2 (16:18→20:18)
[2016-12-22] MEDS: MIRTAZAPINE 15 MG TAB PO SCH (20:15)
[2016-12-22] MEDS: traZODone HCL 50 MG TAB PO SCH (20:15)
[2016-12-22] MEDS: LORazepam 1 MG TAB PO PRN (20:18)
[2016-12-23] VITALS (8 sets, daily range): BP systolic 88–104; BP diastolic 53–61; PULSE 68–96; RESP 16–20; TEMP 96.8–98.7; O2SAT 96–98
[2016-12-23] MEDS: CALCIUM CARBONATE 500 MG CHEWABLE TAB PO PRN ×2 (02:53→15:20)
[2016-12-23 07:53] LABS: AUTOMATED NEUTROPHIL # 8.4 TH/MM3 (1.8-7.7); BASOPHIL % 0.1 % (0.0-2.0); EOSINOPHIL # 0.1 TH/MM3 (0-0.4); EOSINOPHIL % 0.5 % (0.0-4.0); HEMATOCRIT 27.8 % (39.0-51.0); LYMPH % 10.9 % (9.0-44.0); LYMPHOCYTE # 1.2 TH/MM3 (1.0-4.8); MEAN CELL VOLUME 111.3 FL (80.0-100.0); MEAN CORPUSCULAR HGB CONC 34.2 % (32.0-36.0); MONO % 9.7 % (0.0-8.0); NEUT % 78.8 % (16.0-70.0); PLATELET COUNT 52 TH/MM3 (150-450); RED CELL DISTRIBUTION WIDTH 27.7 % (11.6-17.2); WHITE BLOOD COUNT 10.7 TH/MM3 (4.0-11.0)
[2016-12-23 08:01] LABS: HEMO FLAGS AUTO DIFF
[2016-12-23 08:17] LABS: BICARBONATE 20.7 MEQ/L (21.0-32.0)
[2016-12-23 09:17] LABS: KERATOCYTES 1+ (NORMAL); PLATELET ESTIMATE SMEAR LOW (NORMAL); PLATELET MORPHOLOGY NORMAL (NORMAL); SCAN/DIFF AUTO DIFF CONFIRMED
[2016-12-23] MEDS: LIPASE/PROTEASE/AMYLASE (12,000/38,000/60,000) CAP PO SCH ×3 (09:37→18:52)
[2016-12-23] MEDS: PANTOPRAZOLE SOD 20 MG DELAYED RELEASE TAB PO SCH ×2 (09:37→21:37)
[2016-12-23] MEDS: FLUDROCORTISONE ACETATE 0.1 MG TAB PO SCH (09:37)
[2016-12-23] MEDS: SODIUM CHLORIDE 0.9% FLUSH 5 ML FLUSH FLUSH SCH ×2 (09:37→21:38)
[2016-12-23] MEDS: MEGESTROL ACETATE SUSP 400 MG/10 ML CUP PO SCH (09:37)
[2016-12-23] MEDS ORDERED: PILL SPLITTER OTHER PRN (11:45)
[2016-12-23] MEDS: METOPROLOL TARTRATE 25 MG TAB PO SCH ×2 (13:27→21:35)
--- NOTE | 2016-12-23 15:14 | HHI.PR ---
Subjective Remarks patient have more PVCs, denies cp or sob, no palpitations, also hasn't had a BM Objective Vitals Vital Signs Date Time Temp Pulse Resp B/P Pulse Ox O2 Delivery O2 Flow Rate FiO2 12/23/16 11:30 98.2 89 16 96/53 98 12/23/16 08:03 96 12/23/16 07:45 97.2 93 16 90/59 98 12/23/16 04:00 98.7 68 18 104/61 96 12/23/16 00:00 98.7 88 16 93/57 98 12/22/16 20:00 98.4 85 18 101/59 98 12/22/16 15:15 98.2 89 20 118/70 100 I/O 12/22/16 12/22/16 12/22/16 12/23/16 12/23/16 12/23/16 07:00 15:00 23:00 07:00 15:00 23:00 Intake Total 100 ml 1269 ml 240 ml 120 ml Output Total 150 ml 100 ml 200 ml Balance -50 ml 1169 ml 240 ml -80 ml Intake Oral 100 ml 222 ml 240 ml 120 ml IV Total 1047 ml Output Urine Total 150 ml 100 ml 200 ml # Bowel Movements 0 Result Diagram: 12/23/1652 12/23/1652 Objective Remarks General: No acute distress. Pale Conjunctiva. Heart: Regular rate and rhythm. No murmur. Lungs: Clear to auscultation bilaterally. No wheezes, rales, or rhonchi. Breathing is nonlabored. Abdomen: Soft, nontender, mildly distended. Good bowel sounds. Extremities: 1+ lower extremity edema Awake, alert, oriented 3, no focal deficits, moves extremities. Psych: Alert, answers questions appropriately. Procedures 12/16/16 paracentesis A/P Problem List: (1) Dehydration ICD Code: E86.0 Status: Acute (2) Accident due to mechanical fall without injury ICD Code: W19.XXXA Status: Acute (3) Anemia ICD Code: D64.9 Status: Acute (4) Stage IV adenocarcinoma of pancreas ICD Code: C25.9 Status: Chronic (5) Acute kidney failure ICD Code: N17.9 Status: Acute (6) Hyperkalemia ICD Code: E87.5 Status: Acute (7) Hyponatremia ICD Code: E87.1 Status: Acute (8) Hypotension ICD Code: I95.9 Status: Acute (9) Thrombocytopenia ICD Code: D69.6 Status: Acute Assessment and Plan Stage IV pancreatic cancer: Being treated as outpatient with chemotherapy. Patient sees Dr. Art at [facility] for oncology. Appreciate palliative care and oncology recommendations. Discussed with oncology mid level today. Nonsustained ventricular tachycardia/PVC- EKG reviewed, possibly old inferior wall [place]. Cardiology consulted, per cardiology, not a good candidate for any workup. Replace magnesium and potassium as needed. Troponin mildly elevated at 0.69, probably has coronary artery disease. Echocardiogram requested, ejection fraction is 35-40%, Cardiology has signed off. Should be on lisinopril however had acute renal failure and hypotension. More PVCs today, will start low-dose metoprolol. Check magnesium and potassium tomorrow. Systolic congestive heart failure, not in exacerbation-echocardiogram as above, should begin lisinopril however with relative contraindications as above. Start lisinopril and metoprolol if blood pressure is better. Hypertension-likely secondary to dehydration, continue IVF. Anemia: Likely chronic secondary to cancer, chemotherapy. Monitor H&H and transfuse if necessary. Zander cytopenia-stable, recheck tomorrow. Hyperkalemia: Resolved. Acute renal failure secondary to dehydration: Appreciate nephrology recommendations. Improving. Almost resolved. Hyponatremia: Resolved. Multiple falls: Physical therapy eval. Ascites: S/P paracentesis with removal of 5000ml of fluid on 12/16/16. Thrombocytopenia, neutropenia: Improved. Appreciate oncology recommendations. Neutropenic precautions discontinued. Hypotension: BP still low. Continue Florinef, continue IVF, status post bolus. DVT prophylaxis: Pharmacological prophylaxis relatively contraindicated because of thrombus cytopenia and anemia. SCDs. Discharge Planning Rehabilitation recommendation however patient wants to go home. Possible discharge and home health care tomorrow Jovanny Garcia MD Dec 23, 2016 15:14
[2016-12-23] MEDS ORDERED: POLYETHYLENE GLYCOL 17 GM PKG PO PRN (15:15)
[2016-12-23] MEDS ORDERED: POLYETHYLENE GLYCOL POWDER 255 GM BTL PO ONE (16:00)
[2016-12-23] MEDS ORDERED: MAGNESIUM HYDROXIDE SUSP 30 ML CUP PO PRN (19:15)
[2016-12-23] MEDS: MIRTAZAPINE 15 MG TAB PO SCH (21:37)
[2016-12-23] MEDS: traZODone HCL 50 MG TAB PO SCH (21:49)
[2016-12-24] VITALS: BP 99/70; PULSE 70; RESP 17; TEMP 96.8; O2SAT 98
[2016-12-24 04:00] VITALS: BP 98/64; PULSE 70; RESP 18; TEMP 97.4; O2SAT 98
[2016-12-24 07:24] LABS: BICARBONATE 19.8 MEQ/L (21.0-32.0); MAGNESIUM 1.7 MG/DL (1.5-2.5)
[2016-12-24 08:00] VITALS: BP 97/58; PULSE 76; PULSE 82; RESP 18; TEMP 96.9; O2SAT 97
[2016-12-24] MEDS: MEGESTROL ACETATE SUSP 400 MG/10 ML CUP PO SCH (09:00)
[2016-12-24] MEDS: PANTOPRAZOLE SOD 20 MG DELAYED RELEASE TAB PO SCH (09:23)
[2016-12-24] MEDS: LIPASE/PROTEASE/AMYLASE (12,000/38,000/60,000) CAP PO SCH ×2 (09:23→14:02)
[2016-12-24] MEDS: FLUDROCORTISONE ACETATE 0.1 MG TAB PO SCH (09:23)
[2016-12-24] MEDS: SODIUM CHLORIDE 0.9% FLUSH 5 ML FLUSH FLUSH SCH (09:23)
[2016-12-24 12:00] VITALS: BP 123/80; PULSE 88; RESP 16; TEMP 97.3; O2SAT 95
[2016-12-24] MEDS ORDERED: MAGNESIUM SULFATE 1 GM PREMIX 100 ML IV ONE (14:15)
[2016-12-24] MEDS ORDERED: FLUD.1 PO (14:24)
[2016-12-24] MEDS ORDERED: METO25TA3 PO (14:24)
[2016-12-24] MEDS ORDERED: LORA-474 PO (14:24)
[2016-12-24] MEDS ORDERED: TAMS5CAP PO (14:27)
--- NOTE | 2016-12-24 14:59 | HHI.PR ---
Subjective Remarks Follow-up for urinary retention, PVCs No further PVCs, blood pressure stable. Had mild urinary retention yesterday but was able to void by himself. No abdominal pain. Denies any shortness of breath. Objective Vitals Vital Signs Date Time Temp Pulse Resp B/P Pulse Ox O2 Delivery O2 Flow Rate FiO2 12/24/16 12:00 97.3 88 16 123/80 95 12/24/16 08:00 96.9 76 18 97/58 97 12/24/16 04:00 97.4 70 18 98/64 98 12/24/16 00:00 96.8 70 17 99/70 98 12/23/16 20:12 77 12/23/16 20:00 96.8 78 18 88/59 98 12/23/16 15:50 87 20 100/58 98 I/O 12/23/16 12/23/16 12/23/16 12/24/16 12/24/16 12/24/16 07:00 15:00 23:00 07:00 15:00 23:00 Intake Total 120 ml 600 ml 240 ml 60 ml Output Total 200 ml 150 ml 300 ml 0 ml 150 ml Balance -80 ml 450 ml -60 ml 60 ml -150 ml Intake Oral 120 ml 600 ml 240 ml 60 ml Output Urine Total 200 ml 150 ml 300 ml 0 ml 150 ml Bladder Scan Volume Amount 395 ml # Bowel Movements 1 0 0 Result Diagram: 12/23/16 0652 12/24/16 0554 Objective Remarks General: No acute distress. Pale Conjunctiva. Heart: Regular rate and rhythm. No murmur. Lungs: Clear to auscultation bilaterally. No wheezes, rales, or rhonchi. Breathing is nonlabored. Abdomen: Soft, nontender, mildly distended. Good bowel sounds. Extremities: 1+ lower extremity edema Awake, alert, oriented 3, no focal deficits, moves extremities. Psych: Alert, answers questions appropriately. Procedures 12/16/16 paracentesis A/P Problem List: (1) Dehydration ICD Code: E86.0 Status: Acute (2) Accident due to mechanical fall without injury ICD Code: W19.XXXA Status: Acute (3) Anemia ICD Code: D64.9 Status: Acute (4) Stage IV adenocarcinoma of pancreas ICD Code: C25.9 Status: Chronic (5) Acute kidney failure ICD Code: N17.9 Status: Acute (6) Hyperkalemia ICD Code: E87.5 Status: Acute (7) Hyponatremia ICD Code: E87.1 Status: Acute (8) Hypotension ICD Code: I95.9 Status: Acute (9) Thrombocytopenia ICD Code: D69.6 Status: Acute Assessment and Plan Stage IV pancreatic cancer: Being treated as outpatient with chemotherapy. Patient sees Dr. Art at [facility] for oncology. Appreciate palliative care and oncology recommendations. Discussed with oncology mid level today. Nonsustained ventricular tachycardia/PVC- EKG reviewed, possibly old inferior wall [place]. Cardiology consulted, per cardiology, not a good candidate for any workup. Replace magnesium and potassium as needed. Troponin mildly elevated at 0.69, probably has coronary artery disease. Echocardiogram requested, ejection fraction is 35-40%, Cardiology has signed off. Should be on lisinopril however had acute renal failure and hypotension. Metoprolol started , seems to be working. Patient asymptomatic. Blood pressure stable. Systolic congestive heart failure, not in exacerbation-echocardiogram as above, should be on lisinopril however with relative contraindications as above. Continue metoprolol. Hypotension- secondary to dehydration Anemia: Likely chronic secondary to cancer, chemotherapy. Monitor H&H and transfuse if necessary. Thromboytopenia-stable Occasional urinary retention-able to void but having difficulty, likely secondary to BPH, start Flomax Hyperkalemia: Resolved. Acute renal failure secondary to dehydration: Appreciate nephrology recommendations. Improving. Almost resolved. Hyponatremia: Resolved. Multiple falls: Physical therapy eval. Ascites: S/P paracentesis with removal of 5000ml of fluid on 12/16/16. Thrombocytopenia, neutropenia: Improved. Appreciate oncology recommendations. Neutropenic precautions discontinued. Hypotension: BP still low. Continue Florinef DVT prophylaxis: Pharmacological prophylaxis relatively contraindicated because of thrombus cytopenia and anemia. SCDs. Discharge Planning Rehabilitation recommendation however patient wants to go home. Possible discharge and home health care tomorrow Jovanny Garcia MD Dec 24, 2016 14:59
[2016-12-24] MEDS ORDERED: TAMSULOSIN HCL 0.4 MG CAP PO ONE (15:00)
--- NOTE | 2016-12-24 15:01 | HHI.DS ---
Discharge Summary Admission Date Dec 15, 2016 at 03:52 Discharge Date: Dec 24, 2016 Admitting Diagnosis Generalized weakness, hyperkalemia, dehydration (1) Dehydration ICD Code: E86.0 Diagnosis: Principal (2) Accident due to mechanical fall without injury ICD Code: W19.XXXA Diagnosis: Secondary (3) Anemia ICD Code: D64.9 Diagnosis: Secondary (4) Stage IV adenocarcinoma of pancreas ICD Code: C25.9 Diagnosis: Principal (5) Acute kidney failure ICD Code: N17.9 Diagnosis: Principal (6) Hyperkalemia ICD Code: E87.5 Diagnosis: Secondary (7) Hyponatremia ICD Code: E87.1 Diagnosis: Secondary (8) Hypotension ICD Code: I95.9 Diagnosis: Secondary (9) Thrombocytopenia ICD Code: D69.6 Diagnosis: Secondary Procedures 12/16/16 paracentesis Brief History - From Admission Mr. Hooker is a 66-year-old male with a past medical history of stage IV pancreatic cancer being treated by chemotherapy at [facility] under the care of Dr. Art, hypertension not requiring medication management at this time , DVT right lower extremity, PE, dependent edema, and gastroesophageal reflux disease who presented to the emergency room today complaining of a fall while going to the bathroom this morning. The patient is seen in the emergency room. He states that he was placed on fentanyl patches about a week ago and has since developed constipation that is severe. He was given a cathartic that may be lactulose but he is uncertain of the name of the medication and had 4 BMs. He states that he was attempting to stand up from the bed to go the bathroom when he fell. He denies syncope, head injury, chest pain or shortness of breath prior to fall. He states he is not sure if he has a history of liver problems like cirrhosis. He denies frequent falls but admits to falling 3 times in the past 9 months. He denies any history of CVA, seizures, or thyroid dysfunction. He states that he has a right lower extremity DVT and pulmonary embolism treated with IVC filter. He denies heart problems or respiratory problems. . CBC/BMP: 12/23/16 0652 12/24/16 0554 Significant Findings Laboratory Tests Test 12/23/16 12/24/16 06:52 05:54 Red Blood Count 2.50 MIL/MM3 (4.50-5.90) Hemoglobin 9.5 GM/DL (13.0-17.0) Hematocrit 27.8 % (39.0-51.0) Mean Corpuscular Volume 111.3 FL (80.0-100.0) Mean Corpuscular Hemoglobin 38.0 PG (27.0-34.0) Red Cell Distribution Width 27.7 % (11.6-17.2) Platelet Count 52 TH/MM3 (150-450) Mean Platelet Volume 12.0 FL (7.0-11.0) Neutrophils (%) (Auto) 78.8 % (16.0-70.0) Monocytes (%) (Auto) 9.7 % (0.0-8.0) Neutrophils # (Auto) 8.4 TH/MM3 (1.8-7.7) Monocytes # (Auto) 1.0 TH/MM3 (0-0.9) Platelet Estimate LOW (NORMAL) Keratocytes 1+ (NORMAL) Chloride Level 108 MEQ/L 108 MEQ/L (98-107) (98-107) Carbon Dioxide Level 20.7 MEQ/L 19.8 MEQ/L (21.0-32.0) (21.0-32.0) Blood Urea Nitrogen 27 MG/DL (7-18) 29 MG/DL (7-18) Estimat Glomerular Filtration 62 ML/MIN (>89) 67 ML/MIN (>89) Rate Random Glucose 130 MG/DL (74-106) Calcium Level 7.5 MG/DL 7.9 MG/DL (8.5-10.1) (8.5-10.1) PE at Discharge General: No acute distress. Pale Conjunctiva. Heart: Regular rate and rhythm. No murmur. Lungs: Clear to auscultation bilaterally. No wheezes, rales, or rhonchi. Breathing is nonlabored. Abdomen: Soft, nontender, mildly distended. Good bowel sounds. Extremities: 1+ lower extremity edema Awake, alert, oriented 3, no focal deficits, moves extremities. Psych: Alert, answers questions appropriately. Hospital Course Mr. Hooker is a 66-year-old male with a past medical history of stage IV pancreatic cancer being treated by chemotherapy at [facility] under the care of Dr. Art, hypertension not requiring medication management at this time , DVT right lower extremity, PE, dependent edema, and gastroesophageal reflux disease who presented to the emergency room today after a fall. The patient was found to be dehydrated and hypotensive. Patient received intravenous fluid administration. Patient was also in acute renal failure which resolved after volume resuscitation. Patient's hemoglobin and platelets were low but remained stable. Oncology followed the patient. Patient was also seen cardiology for nonsustained ventricular tachycardia and PVCs. EKG reviewed, possibly old inferior wall [place]. Cardiology consulted, per cardiology, not a good candidate for any workup. Magnesium and potassium were replaced. Troponin mildly elevated at 0.69, probably has coronary artery disease. Echocardiogram requested, ejection fraction is 35-40%, Cardiology has signed off, recommended metoprolol, metoprolol was started which improved PVCs and nonsustained V. tach. Patient. Should be on lisinopril however had acute renal failure and hypotension. Patient will be discharged to rehabilitation. Patient was also started on Flomax for urinary retention. For his stage IV pancreatic cancer, he will follow-up with Dr. Art for further treatment. Pt Condition on Discharge: Good Discharge Disposition: Discharge to SNF Discharge Time: > 30 minutes Discharge Instructions DIET: Follow Instructions for: Heart Healthy Diet Activities you can perform: Regular-No Restrictions Follow up Referrals: SNF/[facility]/ - 2-3 Days New Medications: Tamsulosin (Flomax) 0.4 Mg Cap 0.4 MG PO HS Manage Prostate Problems #30 Ref 0 CAP Fludrocortisone (Fludrocortisone) 0.1 Mg Tab 0.1 MG PO DAILY hypotension #30 TAB Metoprolol Tartrate (Metoprolol Tartrate) 25 Mg Tab 12.5 MG PO Q12HR PVCs #60 TAB Continued Medications: Lorazepam (Ativan) 1 Mg Tab 1 MG PO DAILY PRN ANXIETY AND/OR AGITATION #10 Ref 0 TAB (This prescription has been renewed) Mirtazapine (Mirtazapine) 30 Mg Tab 30 MG PO HS Depression Control #30 Ref 0 TAB Omeprazole (Prilosec) 20 Mg Cap 20 MG PO BID #30 Ref 0 CAP Ondansetron (Zofran) 8 Mg Tab 8 MG PO TID Nausea/Vomiting Ref 0 TAB Pancrelipase (Zenpep) 10,000-34,000-55,000 Units Cap 2 CAP PO TIDPC Digestive Aid #90 Ref 0 CAP Prochlorperazine Maleate (Prochlorperazine Maleate) 10 Mg Tab 10 MG PO Q6H PRN NAUSEA OR VOMITING Ref 0 TAB Trazodone (Trazodone) 50 Mg Tab 50 MG PO HS Control Depression #30 Ref 0 TAB Discontinued Medications: Spironolactone (Spironolactone) 25 Mg Tab 25 MG PO DAILY #30 Ref 0 TAB Jovanny Garcia MD Dec 24, 2016 15:01
[2016-12-24 16:00] VITALS: BP_SYST 100; BP_SYST 123; BP_DIAS 70; BP_DIAS 74; PULSE 74; PULSE 85; RESP 18; TEMP 97.1; TEMP 97.4; O2SAT 96; O2SAT 98
== END 2016-12-24 19:00 | DRG 640 ==
LOC: NEPE 01:36 → NEDA 03:52 → HCIS 09:08 → N06B 12-19 21:30 → HOCA 12-21 18:52
PROVIDERS: ADMIT Hospitalist; ATTEND Hospitalist
PROC: 0W9G3ZZ Drainage of Peritoneal Cavity, Percutaneous Approach (ICD-10-PCS; principal; 2016-12-16)
PROC: 0T9B70Z Drainage of Bladder with Drainage Device, Via Natural or Artificial Opening (ICD-10-PCS; 2016-12-16)
DX: E86.0 Dehydration (principal); D61.810 Antineoplastic chemotherapy induced pancytopenia; N17.9 Acute kidney failure, unspecified; I47.2 Ventricular tachycardia; R18.0 Malignant ascites; I95.9 Hypotension, unspecified; D69.6 Thrombocytopenia, unspecified; E46 Unspecified protein-calorie malnutrition; C25.9 Malignant neoplasm of pancreas, unspecified; I50.20 Unspecified systolic (congestive) heart failure; E87.1 Hypo-osmolality and hyponatremia; E87.5 Hyperkalemia; Z91.81 History of falling; I10 Essential (primary) hypertension; Z86.718 Personal history of other venous thrombosis and embolism; K21.9 Gastro-esophageal reflux disease without esophagitis; Z86.711 Personal history of pulmonary embolism; K59.00 Constipation, unspecified; R33.8 Other retention of urine; Z68.25 Body mass index [BMI] 25.0-25.9, adult; Z87.891 Personal history of nicotine dependence; Z66 Do not resuscitate
CPT/HCPCS: 36430; 49083; 71010; 76700; 76937; 80048; 80053; 80069; 81001; 82570; 83615; 83735; 83880; 84100; 84300; 84484; 85007; 85025; 85027; 85049; 85610; 85730; 86900; 86901; 93005; 93306; 94664; 96360; C1729; J0610; J1644; J1815; J2405; J3475; J3480; J7030; J7040; J7050; J7070; J7613; P9035; P9047